=== PATIENT | female | born 1960 | race Caucasian/White ===

== ENCOUNTER 2016-10-27 15:31 | Emergency (ER) | payer OTHER ==
[~2016-10-27] VITALS: Ht 174 cm; Wt 89.4 kg
[~2016-10-27 15:31] MED LIST: ALDACTONE100 M1 PO; ASPIRIN EC81 M1 PO; B COMPLEX1 EACH PO; BIOTIN2500 MCG PO; BOTOX100 UNIT; BYDUREON2 MG SC; CALCIUM-MAG-ZI1 EACH PO; CIPRODEX OTIC7.5 ML OT; CLARITIN10 M1 PO; DEXAMETHAS0.5 MG/52 PO; FERROUS SULFAT324 MG PO; FOLIC ACID0.8 M2 PO; FUROSEMIDE20 M1 PO; HUMALOG MI100 UNIT/4 SC; LANTUS SOL100 UNIT/1 SC; MAGNESIUM250 M3 PO; MECLIZINE HCL25 MG PO; MELATONIN10 M2 PO; METFORMIN HCL500 MG PO; MILK THISTLE200 M1 PO; MULTIPLE VITAM1 EAC2 PO; PANTOPRAZOLE SO40 M1 PO; PHENERGAN25 M1 PO; PROMETHAZINE HC25 M3 PO; TIZANIDINE HCL2 M1 PO; UNISOM25 M1 PO; VICODIN 5-3001 EACH PO; VICODIN5-300 PO; VITAMIN B2100 MG PO; VITAMIN C100 M2 PO; VITAMIN D1000 UNIT PO; VITAMIN E100 I1 PO; ZINC50 M2 PO
--- NOTE | 2016-10-27 17:14 | ED HEADACHE COMPLAINT ---
History of Present Illness General Chief Complaint: Headache Stated Complaint: MIGRAINE X 1 WEEK Source: patient Exam Limitations: no limitations Vital Signs & Intake/Output Vital Signs & Intake/Output Vital Signs Date Time Temp Pulse Resp B/P Pulse O2 O2 Flow FiO2 Ox Delivery Rate 10/27 2048 77 20 121/70 99 Room Air 10/27 1904 77 22 127/60 98 Room Air 10/27 1736 Room Air 10/27 1538 98.3 80 20 135/74 99 Room Air Allergies Coded Allergies: Estrogens (CONTRAINDICATED 10/27/16) amitriptyline (From ELAVIL) (UNKNOWN 10/27/16) aspirin (From AGGRENOX) (LEG CRAMPS 10/27/16) banana (MIGRAINE HEADACHE 10/27/16) carvedilol (From COREG) (LOW BP 10/27/16) dipyridamole (From AGGRENOX) (LEG CRAMPS 10/27/16) divalproex sodium (From DEPAKOTE) (LOSING HAIR 10/27/16) ezetimibe (From VYTORIN) (MUSCLE WEAKNESS, LOW BP 10/27/16) fentanyl (UNKNOWN/CONFUSION 10/27/16) gemfibrozil (From LOPID) (MUSCLE WEAKNESS 10/27/16) hydroxychloroquine (From PLAQUENIL) (LEG CRAMPS 10/27/16) ketorolac (From TORADOL) (HEADACHE 10/27/16) methysergide (From SANSERT) (N/V 10/27/16) metoclopramide (From REGLAN) (INVOLUNTARY MOVEMENTS WITH [facility] WEAKNESS 10/14) olanzapine (From ZYPREXA) (UNKNOWN 10/27/16) onion (MIGRAINES 10/27/16) paroxetine (From PAXIL) (UNKNOWN 10/27/16) pioglitazone (From ACTOS) (UNKNOWN 10/27/16) pregabalin (From LYRICA) (LOSS OF BALANCE 10/27/16) prochlorperazine (From COMPAZINE) (NEURO 10/27/16) propoxyphene (PARANOIA 10/27/16) propranolol (LOW BP 10/27/16) ranolazine (From RANEXA) (LOW BP 10/27/16) sertraline (From ZOLOFT) (UNKNOWN 10/27/16) simvastatin (From VYTORIN) (MUSCLE WEAKNESS, LOW BP 10/27/16) temazepam (From RESTORIL) (UBJ 10/27/16) tiagabine (From GABITRIL) (UNKNOWN 10/27/16) topiramate (From TOPAMAX) (HEADACHE 10/27/16) Triage Note: TRIAGE: PT TO ER C/C MIGRAINE HEADACHE SINCE LAST MONDAY. TRIED IBUOROFEN AND EXCEDRIN MIGRAINE WITH ONLY SLIGHT RELIEF NOTED. Triage Nurses Notes Reviewed? yes HPI: This patient is a 56-year-old female with past medical history including migraine headaches and questionable prior TIA who presented to the emergency department today for evaluation of a headache since Monday. The patient reported that he had pain is located primarily on the left side of her head which is where her usual migraines are located. She reported that the pain worsened until Monday when it became constant. It is currently an 8.5 out of 10. The pain is nonradiating and throbbing. The patient denied any visual changes, or aura, neck pain, rashes, body aches, chest pain, difficulty breathing, numbness or tingling in her extremities, unilateral weakness, difficulty with speech, abdominal pain, or any other associated symptoms. The patient reported that she has tried taking ibuprofen and Excedrin Migraine without any relief of her symptoms. Her last dose of these medications with this morning. The patient typically gets Botox injections for her migraines. She reported that she has not had any migraines and, "quite some time," and that this is the first one she has had in a while. (ROD DE LA GARZA,BIANCA) Reconcile Medications Ascorbic Acid (Vitamin C) 100 MG TABLET 3 TAB PO DAILY SUPPLEMENT (Reported) Aspirin (Ecotrin*) 81 MG TABLET. 1 TAB PO DAILY HEART/BLOOD (Reported) Biotin 2,500 MCG CAPSULE 2 CAP PO BID SUPPLEMENT (Reported) Botulinum Toxin Type A (Botox) (Unknown Strength) VIAL (Unknown Dose) Q3M UNKNOWN (Reported) Butalb/Acetaminophen/Caffeine (Fioricet 50-300-40 MG Capsule) 50 MG-300 MG-40 MG CAPSULE 1 TAB PO TID PRN MIGRAINE Calcium Carb/D3/Magnesium/Zinc (Zwlbbbh-Kel-Ygfi-Vit D Tablet) 333 MG-200 UNIT- 133 MG-5 MG TABLET 1 TAB PO DAILY SUPPLEMENT (Reported) Cholecalciferol (Vitamin D3) (Vitamin D) 1,000 UNIT TABLET 1 TAB PO DAILY SUPPLEMENT (Reported) Dexamethasone (Unknown Strength) ELIXIR (Unknown Dose) PO BID RINSE (Reported ) Doxylamine Succinate (Unisom) 25 MG TABLET 2 TAB PO QPM SLEEP (Reported) Ferrous Sulfate 324 MG (65 MG IRON) TABLET.DR 1 TAB PO BID SUPPLEMENT ( Reported) Folic Acid 0.8 MG TABLET 1 TAB PO DAILY SUPPLEMENT (Reported) Furosemide 20 MG TABLET 1 TAB PO DAILY PRN WATER PILL (Reported) Insulin Glargine,Hum.rec.anlog (Lantus Solostar) 100 UNIT/ML (3 ML) INSULN.PEN 30 UNIT SC BID DM (Reported) Insulin NPL/Insulin Lispro (Humalog Mix 50-50 Kwikpen) 100 UNIT/ML (50-50) INSULN.PEN 15 U SC DAILY DIABETES (Reported) Insulin NPL/Insulin Lispro (Humalog Mix 50-50 Kwikpen) 100 UNIT/ML (50-50) INSULN.PEN 25 U SC QPM DIABETES (Reported) Insulin NPL/Insulin Lispro (Humalog Mix 50-50 Kwikpen) 100 UNIT/ML (50-50) INSULN.PEN 15 U SC 1200 DIABETES (Reported) Loratadine (Claritin) 10 MG TABLET 1 TAB PO DAILY ALLERGIES (Reported) Magnesium 250 MG TABLET 1 TAB PO DAILY SUPPLEMENT (Reported) Meclizine HCl 25 MG TABLET 1 TAB PO TIDPRN PRN DIZZINESS Melatonin 10 MG TABLET 1 TAB PO QPM SLEEP (Reported) Milk Thistle Seed Extract (Milk Thistle) 200 MG CAPSULE 1 CAP PO DAILY SUPPLEMENT (Reported) Multivitamin (Multiple Vitamins) 1 EACH TABLET 1 TAB PO DAILY SUPPLEMENT ( Reported) Pantoprazole Sodium 40 MG TABLET.DR 1 TAB PO DAILY GI (Reported) Spironolactone (Aldactone) 100 MG TABLET 1 TAB PO DAILY PRN UNKNOWN (Reported ) Tizanidine HCl 2 MG TABLET 1 TAB PO AD PRN PAIN (Reported) Vitamin B Complex (B Complex) 1 EACH TABLET 1 TAB PO DAILY SUPPLEMENT ( Reported) ZINC 50 MG TABLET 1 TAB PO DAILY SUPPLEMENT (Reported) (KRISTIN GOLDSTEIN) Past History Travel History Traveled to [place] past 21 day No Medical History Any Pertinent Medical History? see below for history Neurological: migraine EENT: cataracts Cardiovascular: NONE Respiratory: NONE Gastrointestinal: NONE Hepatic: NonAlcholic Systemic Hep. Renal: NONE Musculoskeletal: calcaneal spur Psychiatric: insomnia Endocrine: diabetes Blood Disorders: anemia Cancer(s): NONE PAPER FINAL INSPECTOR/Reproductive: NONE History of MRSA: No History of VRE: No History of CDIFF: No Surgical History Surgical History: non-contributory Psychosocial History Who do you live with Spouse Services at Home None What is your primary language Gibralt[place] Tobacco Use: Never used ETOH Use: denies use Illicit Drug Use: denies illicit drug use Family History Hx Contributory? No (BIANCA VELASCO PA-C) Review of Systems Review of Systems Constitutional: Reports: no symptoms. Eyes: Reports: no symptoms. Ears, Nose, Throat, Mouth: Reports: no symptoms. Respiratory: Reports: no symptoms. Cardiovascular: Reports: no symptoms. Gastrointestinal/Abdominal: Reports: no symptoms. Genitourinary: Reports: no symptoms. Musculoskeletal: Reports: no symptoms. Skin: Reports: no symptoms. Neurological/Psychological: Reports: see HPI. All Other Systems: Reviewed and Negative (BIANCA VELASCO PA-C) Physical Exam Physical Exam Cranial Nerves: normal hearing, normal speech, PERRL Comments: Well-developed well-nourished person in no acute distress HEENT: Normal EENT exam, head normocephalic/atraumatic PERRLA bilaterally. EOMI bilaterally with no nystagmus Neck: Supple, no lymphadenopathy. No midline tenderness. Full range of motion Back: Normal gait. Normal inspection Cardiovascular: Regular rate and rhythm with no murmurs, rubs, or gallops Respiratory: Chest nontender. No respiratory distress. Breath sounds clear to auscultation bilaterally Extremity: Normal and equal pulses Neuro: Alert oriented x3, motor sensory normal, cranial nerves II through XII grossly intact. 5 out of 5 muscular strength in all extremities. No aphasia. No facial droop. No unilateral weakness. No focal neurologic deficits appreciated Skin: No appreciable rash on exposed skin, skin is warm and dry. Psych: Mood and affect is normal Core Measures Severe Sepsis Present: No Septic Shock Present: No (BIANCA VELASCO PA-C) Progress Differential Diagnosis: carotid dissection, cav sinus thromb, cluster SEPULVEDA, encephalitis, IC mass/tumor, intracranial Hem., meningitis, migraine SEPULVEDA, musculoskeletal pain, sinusitis, subarach. Hem., tension SEPULVEDA, temporal arteritis, TMJ syndrome, viral cephalgia Plan of Care: IT Was discussed to me by Saumya VELASCO PA-C handoff which patient is receiving second dose of morphine for headaches and reevaluation WILL OCCUR 10/27/2016 8:38:19 PM-on discharge patient had significant resolution of headache Patient will follow-up as directed and discharge instructions and had no questions on discharge.Hand-Off Endorsed To: KRISTIN GOLDSTEIN Endorsed Time: 1999 Pending: other Comments: 10/27/2016 5:12:45 PM: Discussed with this patient her options for getting a CT scan of the head. Discussed with her the risks of radiation versus the benefits should there be any intracranial pathology that we could attribute her head pain to. The patient is refusing at this time. 10/27/2016 7:07:40 PM: The patient reported that her pain is down to a 4 out of 10. She would like to try a little more medication to try to get the headache to completely break. (BIANCA VELASCO PA-C) Plan of Care: IT Was discussed to me by Saumya VELASCO PA-C handoff which patient is receiving second dose of morphine for headaches and reevaluation WILL OCCUR 10/27/2016 8:38:19 PM-on discharge patient had significant resolution of headache Patient will follow-up as directed and discharge instructions and had no questions on discharge. (KRISTIN GOLDSTEIN) Departure Departure Disposition: HOME OR SELF CARE Condition: Stable Clinical Impression Primary Impression: Migraine Qualifiers: Migraine type: without aura Status migrainosus presence: without status migrainosus Intractability: not intractable Qualified Code: G43.009 - Migraine without aura, not intractable, without status migrainosus Referrals: BHAVIK PARADA (PCP/Family) Departure Forms: Customer Survey General Discharge Information (BIANCA VELASCO PA-C) Departure Additional Instructions: Please follow-up with your primary care physician and with your neurologist if symptoms continue tomorrow. Rest and be sure to stay hydrated. Return for any worsening symptoms or concerns. Continue home medications as directed. Begin the pressure was noted Fioricet for breakthrough headache relief. Prescription is waiting at your pharmacy Prescriptions: Current Visit Scripts Butalb/Acetaminophen/Caffeine (Fioricet 50-300-40 MG Capsule) 1 TAB PO TID PRN MIGRAINE #20 TAB (KRISTIN GOLDSTEIN) PA/RN OSTOMY Co-Sign Statement Statement: ED Attending supervision documentation- [] I saw and evaluated the patient. I have also reviewed all the pertinent lab results and diagnostic results. I agree with the findings and the plan of care as documented in the PA's/RN OSTOMY's documentation. x I have reviewed the ED Record and agree with the PA's/RN OSTOMY's documentation. [] Additions or exceptions (if any) to the PAs/RN OSTOMY's note and plan are summarized below: [] (JASON CUNNINGHAM,QUINN)
[2016-10-27] MEDS ORDERED: FIORICET 50-301 EACH PO (20:37)
[2016-10-27 20:48] VITALS: BP 121/70
== END 2016-10-27 20:49 ==
LOC: ERH 15:31
DX: G43.909 Migraine, unspecified, not intractable, without status migrainosus (principal)
CPT/HCPCS: 96361; 96374; 96375; 96376; J1200

== ENCOUNTER 2016-12-09 19:36 | Emergency (ER) | payer OTHER ==
[~2016-12-09] VITALS: Ht 172.7 cm; Wt 88.9 kg
[~2016-12-09 19:36] MED LIST changes: +FIORICET 50-301 EACH PO
--- NOTE | 2016-12-09 21:03 | ED UPPER/LOWER EXTREMITY COMPL ---
History of Present Illness General Chief Complaint: Hand or Wrist Injury Stated Complaint: LEFT HAND PAIN Source: patient Exam Limitations: no limitations Vital Signs & Intake/Output Vital Signs & Intake/Output Vital Signs Date Time Temp Pulse Resp B/P Pulse O2 O2 Flow FiO2 Ox Delivery Rate 12/09 2200 98.1 90 18 138/74 96 12/09 2005 98.6 93 18 143/78 98 Room Air ED Intake and Output 12/10 0000 12/09 1200 Intake Total 30 Output Total Balance 30 Intake, Oral 30 Patient 196 lb Weight Allergies Coded Allergies: Estrogens (CONTRAINDICATED 10/27/16) amitriptyline (From ELAVIL) (UNKNOWN 10/27/16) aspirin (From AGGRENOX) (LEG CRAMPS 10/27/16) banana (MIGRAINE HEADACHE 10/27/16) carvedilol (From COREG) (LOW BP 10/27/16) dipyridamole (From AGGRENOX) (LEG CRAMPS 10/27/16) divalproex sodium (From DEPAKOTE) (LOSING HAIR 10/27/16) ezetimibe (From VYTORIN) (MUSCLE WEAKNESS, LOW BP 10/27/16) fentanyl (UNKNOWN/CONFUSION 10/27/16) gemfibrozil (From LOPID) (MUSCLE WEAKNESS 10/27/16) hydroxychloroquine (From PLAQUENIL) (LEG CRAMPS 10/27/16) ketorolac (From TORADOL) (HEADACHE 10/27/16) methysergide (From SANSERT) (N/V 10/27/16) metoclopramide (From REGLAN) (INVOLUNTARY MOVEMENTS WITH [facility] WEAKNESS 10/14) olanzapine (From ZYPREXA) (UNKNOWN 10/27/16) onion (MIGRAINES 10/27/16) paroxetine (From PAXIL) (UNKNOWN 10/27/16) pioglitazone (From ACTOS) (UNKNOWN 10/27/16) pregabalin (From LYRICA) (LOSS OF BALANCE 10/27/16) prochlorperazine (From COMPAZINE) (NEURO 10/27/16) propoxyphene (PARANOIA 10/27/16) propranolol (LOW BP 10/27/16) ranolazine (From RANEXA) (LOW BP 10/27/16) sertraline (From ZOLOFT) (UNKNOWN 10/27/16) simvastatin (From VYTORIN) (MUSCLE WEAKNESS, LOW BP 10/27/16) temazepam (From RESTORIL) (UBJ 10/27/16) tiagabine (From GABITRIL) (UNKNOWN 10/27/16) topiramate (From TOPAMAX) (HEADACHE 10/27/16) Reconcile Medications Ascorbic Acid (Vitamin C) 100 MG TABLET 3 TAB PO DAILY SUPPLEMENT (Reported) Aspirin (Ecotrin*) 81 MG TABLET.DR 1 TAB PO DAILY HEART/BLOOD (Reported) Biotin 2,500 MCG CAPSULE 2 CAP PO BID SUPPLEMENT (Reported) Botulinum Toxin Type A (Botox) (Unknown Strength) VIAL (Unknown Dose) Q3M UNKNOWN (Reported) Butalb/Acetaminophen/Caffeine (Fioricet 50-300-40 MG Capsule) 50 MG-300 MG-40 MG CAPSULE 1 TAB PO TID PRN MIGRAINE Calcium Carb/D3/Magnesium/Zinc (Thghtra-Ggx-Jote-Vit D Tablet) 333 MG-200 UNIT- 133 MG-5 MG TABLET 1 TAB PO DAILY SUPPLEMENT (Reported) Cholecalciferol (Vitamin D3) (Vitamin D) 1,000 UNIT TABLET 1 TAB PO DAILY SUPPLEMENT (Reported) Dexamethasone (Unknown Strength) ELIXIR (Unknown Dose) PO BID RINSE (Reported ) Doxylamine Succinate (Unisom) 25 MG TABLET 2 TAB PO QPM SLEEP (Reported) Ferrous Sulfate 324 MG (65 MG IRON) TABLET.DR 1 TAB PO BID SUPPLEMENT ( Reported) Folic Acid 0.8 MG TABLET 1 TAB PO DAILY SUPPLEMENT (Reported) Furosemide 20 MG TABLET 1 TAB PO DAILY PRN WATER PILL (Reported) Insulin Glargine,Hum.rec.anlog (Lantus Solostar) 100 UNIT/ML (3 ML) INSULN.PEN 30 UNIT SC BID DM (Reported) Insulin NPL/Insulin Lispro (Humalog Mix 50-50 Kwikpen) 100 UNIT/ML (50-50) INSULN.PEN 15 U SC DAILY DIABETES (Reported) Insulin NPL/Insulin Lispro (Humalog Mix 50-50 Kwikpen) 100 UNIT/ML (50-50) INSULN.PEN 25 U SC QPM DIABETES (Reported) Insulin NPL/Insulin Lispro (Humalog Mix 50-50 Kwikpen) 100 UNIT/ML (50-50) INSULN.PEN 15 U SC 1200 DIABETES (Reported) Loratadine (Claritin) 10 MG TABLET 1 TAB PO DAILY ALLERGIES (Reported) Magnesium 250 MG TABLET 1 TAB PO DAILY SUPPLEMENT (Reported) Meclizine HCl 25 MG TABLET 1 TAB PO TIDPRN PRN DIZZINESS Melatonin 10 MG TABLET 1 TAB PO QPM SLEEP (Reported) Milk Thistle Seed Extract (Milk Thistle) 200 MG CAPSULE 1 CAP PO DAILY SUPPLEMENT (Reported) Multivitamin (Multiple Vitamins) 1 EACH TABLET 1 TAB PO DAILY SUPPLEMENT ( Reported) Oxycodone HCl/Acetaminophen (Percocet 5-325 MG Tablet) 5 MG-325 MG TABLET 1 TAB PO BID PAIN Pantoprazole Sodium 40 MG TABLET.DR 1 TAB PO DAILY GI (Reported) Spironolactone (Aldactone) 100 MG TABLET 1 TAB PO DAILY PRN UNKNOWN (Reported ) Tizanidine HCl 2 MG TABLET 1 TAB PO AD PRN PAIN (Reported) Vitamin B Complex (B Complex) 1 EACH TABLET 1 TAB PO DAILY SUPPLEMENT ( Reported) ZINC 50 MG TABLET 1 TAB PO DAILY SUPPLEMENT (Reported) Triage Note: RECEIVED 56 YO FEMALE C/O SEVERE LEFT HAND PAIN AND LOSS OF FULL ROM ON LEFT HAND FINGERS. PT WAS PICKING UP A LARGE ROCK THIS AFTERNOON WHEN PT GOT A SEVERE PAIN IN PALM OF LEFT HAND AND PAIN RADIATES UP LEFT ARM WHEN SHE TRIES TO USE THE FINGERS Triage Nurses Notes Reviewed? yes Onset: Abrupt Duration: constant Timing: single episode today Severity: severe Severity Numbers: 10 HPI: Patient is a 56-year-old female who presents emergency room sooner today while gardening she was holding a heavy rock in her hand with a rock was was held and she tried to grab it immediately however she had acute onset of (KRISTIN GOLDSTEIN) Past History Travel History Traveled to [place] past 21 day No Medical History Any Pertinent Medical History? see below for history Neurological: migraine EENT: cataracts Cardiovascular: NONE Respiratory: NONE Gastrointestinal: NONE Hepatic: NonAlcholic Systemic Hep. Renal: NONE Musculoskeletal: calcaneal spur Psychiatric: insomnia Endocrine: diabetes Blood Disorders: anemia Cancer(s): NONE RISK ADVISOR/Reproductive: NONE History of MRSA: No History of VRE: No History of CDIFF: No Surgical History Surgical History: non-contributory Psychosocial History Who do you live with Spouse Services at Home None What is your primary language [place] Tobacco Use: Never used Family History Hx Contributory? No (KRISTIN GOLDSTEIN) Review of Systems Review of Systems Constitutional: Reports: no symptoms. EENTM: Reports: no symptoms. Respiratory: Reports: no symptoms. Cardiovascular: Reports: no symptoms. Gastrointestinal/Abdominal: Reports: no symptoms. Genitourinary: Reports: no symptoms. Musculoskeletal: Reports: see HPI, joint pain. Skin: Reports: no symptoms. Neurological/Psychological: Reports: no symptoms. Hematologic/Endocrine: Reports: no symptoms. Immunological: Reports: no symptoms. All Other Systems: Reviewed and Negative (KRISTIN GOLDSTEIN) Physical Exam Physical Exam General Appearance: no apparent distress, comfortable Neurologic/Tendon: normal sensation, normal motor functions, normal tendon functions, responds to pain, no evidence tendon injury, no pulse deficit Skin: intact, normal color, warm/dry Comments: Well-developed well-nourished patient in no apparent distress. HEENT: Atraumatic, extraocular motion intact Neck: Supple, FROM, no lymphadenopathy Back: FROM, Nontender Cardiovascular: Regular rate and rhythms no murmurs rubs or gallops, Respiratory: Chest nontender.There were no bony deformities, no asymmetry. No respiratory distress. Patient speaking in full complete sentences. Breath sounds clear to auscultation bilaterally: NO W/R/R Neuro: Alert and oriented x3 Skin: Warm & dry;No appreciable rash on exposed skin Left wrist nontender full active range of motion Psych: Mood affect normal, normal memory normal judgment. Diagram Hands Front 1) Noted linear tendon POINT TENDERNESS Full active range of motion noted with flexion and extension no surrounding erythema no warmth dermatomes intact (KRISTIN GOLDSTEIN) Progress Differential Diagnosis: arterial insufficiency, compartment syndrome, contusion, dislocation, DVT, fracture, gout, septic arthritis, sprain, tendon injury, DUPUTRYEN'S CONTRACTURE Plan of Care: Orders Procedure Date/time Status XRY-HAND, 3 View LEFT 12/09 2010 Active No osseous injury noted on x-rays. Patient has concerns of right hand third digit flexor tendon sprain mild suspicion of DUPUYTREN'S contracture however patient was strongly advised to follow up with orthopedic doctor if symptoms still persist by next week. No significant contracture noted prior to discharge however patient did have discomfort along the flexor tendon region. (KRISTIN GOLDSTEIN) Diagnostic Imaging: Viewed by Me: Radiology Read. Radiology Impression: no acute abnormality Comments: PATIENT: MELLISA MCLEAN PRESENT AGE: 56 PATIENT ACCOUNT NO: [id number] : 56 LOCATION: [facility] ORDERING PHYSICIAN: KRISTIN FELIX SERVICE DATE: 12/09/16 EXAM TYPE: RAD - XRY-HAND, LEFT EXAMINATION: XR HAND, LEFT CLINICAL INFORMATION: Left hand pain following injury. COMPARISON: None. TECHNIQUE: AP, lateral, and oblique views of the left hand. FINDINGS: No acute fracture or dislocation of the left hand. No cortical destruction or significant periosteal reaction is identified. There are cortical lucencies along the radial aspect of the proximal and mid phalanges of the fourth digit. This can be seen in the setting of underlying arthritis. There is also minimal associated joint space narrowing involving the proximal and distal interphalangeal joints of all 5 digits. No radiopaque foreign bodies. IMPRESSION: No acute fracture or dislocation of the left hand. (KRISTIN GOLDSTEIN) Departure Departure Disposition: HOME OR SELF CARE Condition: Stable Clinical Impression Primary Impression: Sprain of left middle finger Secondary Impressions: Dupuytren contracture Referrals: BHAVIK PARADA (PCP/Family) MEREDITH MAS MD Additional Instructions: As discussed begin to ice the area directly 20 minutes every 2 hours. Begin [id number]-fodbnuk ibuprofen for pain and inflammation begin the prescription of Percocet for breakthrough pain relief. If no better one week follow-up with orthopedic Dr. Mas. Prescriptions waiting a [facility]. If symptoms worsen return to emergency room Departure Forms: Customer Survey General Discharge Information Prescriptions: Current Visit Scripts Oxycodone HCl/Acetaminophen (Percocet 5-325 MG Tablet) 1 TAB PO BID #10 TAB (KRISTIN GOLDSTEIN) PA/SAP PLANT MAINTENANCE CONSULTANT Co-Sign Statement Statement: ED Attending supervision documentation- [] I saw and evaluated the patient. I have also reviewed all the pertinent lab results and diagnostic results. I agree with the findings and the plan of care as documented in the PA's/[employer] PL[employer] MAINTENANCE CONSULTANT's documentation. [x] I have reviewed the ED Record and agree with the PA's/SAP PLANT MAINTENANCE CONSULTANT's documentation. [] Additions or exceptions (if any) to the PAs/SAP PLANT MAINTENANCE CONSULTANT's note and plan are summarized below: [] (ELO CUNNINGHAM,PAZ Bautista)
--- NOTE | 2016-12-09 21:29 | RADIOLOGY REPORT ---
EXAMINATION: XR HAND, LEFT CLINICAL INFORMATION: Left hand pain following injury. COMPARISON: None. TECHNIQUE: AP, lateral, and oblique views of the left hand. FINDINGS: No acute fracture or dislocation of the left hand. No cortical destruction or significant periosteal reaction is identified. There are cortical lucencies along the radial aspect of the proximal and mid phalanges of the fourth digit. This can be seen in the setting of underlying arthritis. There is also minimal associated joint space narrowing involving the proximal and distal interphalangeal joints of all 5 digits. No radiopaque foreign bodies. IMPRESSION: No acute fracture or dislocation of the left hand.
[2016-12-09] MEDS ORDERED: PERCOCET 5-3251 EACH PO (21:41)
[2016-12-09 22:01] VITALS: BP 138/74
== END 2016-12-09 22:02 ==
LOC: ERH 19:36
DX: S63.633A Sprain of interphalangeal joint of left middle finger, initial encounter (principal); M72.0 Palmar fascial fibromatosis [Dupuytren]; X58.XXXA Exposure to other specified factors, initial encounter; Y93.H2 Activity, gardening and landscaping; Y92.9 Unspecified place or not applicable
CPT/HCPCS: 73130-LT

== ENCOUNTER 2018-01-02 12:14 | Inpatient (IN) | payer OTHER ==
[~2018-01-02] VITALS: Ht 174 cm; Wt 87.1 kg
[~2018-01-02 12:14] MED LIST changes: +PERCOCET 5-3251 EACH PO
[2018-01-02 12:44] LABS: ABSOLUTE BASOPHIL COUNT 0 /CUMM (0.0-0.2); ABSOLUTE EOSINOPHIL COUNT 0 /CUMM (0.0-0.7); ABSOLUTE GRANULOCYTE CT 6.3 /CUMM (1.4-6.5); ABSOLUTE LYMPH COUNT 0.8 /CUMM (1.2-3.4); ABSOLUTE MONOCYTE COUNT 0.7 /CUMM (0.10-0.60); BASOPHIL % 0.2 % (0.0-2.0); EOSINOPHIL % 0.4 % (0-5); GRANULOCYTE % 81.1 % (42.2-75.2); MEAN CORPUSCULAR HGB 34.2 PG (27.0-31.0); MEAN CORPUSCULAR HGB CONC 35.5 G/DL (33.0-37.0); MEAN CORPUSCULAR VOLUME 96.4 FL (81.0-99.0); MEAN PLATELET VOLUME 7.1 FL (7.4-10.4); PLATELET COUNT 70 /CUMM (130-400); RBC DISTRIBUTION WIDTH 14.6 % (11.5-14.5); RED BLOOD CELL CT 4.35 /CUMM (4.20-5.40); WHITE BLOOD CELL COUNT 7.8 /CUMM (4.8-10.8)
--- NOTE | 2018-01-02 14:33 | ED GI/GU/ABDOMINAL COMPLAINT ---
History of Present Illness General Chief Complaint: Nausea, Vomiting, Diarrhea Stated Complaint: NVD Source: patient, family Exam Limitations: no limitations Vital Signs & Intake/Output Vital Signs & Intake/Output Vital Signs Date Time Temp Pulse Resp B/P B/P Pulse O2 O2 Flow FiO2 Mean Ox Delivery Rate 01/02 1752 98.8 93 20 131/61 97 Room Air Room Air 01/02 1711 98.5 88 18 122/68 97 Room Air Room Air 01/02 1435 90 18 117/65 96 Room Air 01/02 1218 98.2 97 18 127/71 96 Allergies Coded Allergies: Estrogens (CONTRAINDICATED 10/27/16) amitriptyline (From ELAVIL) (UNKNOWN 10/27/16) aspirin (From AGGRENOX) (LEG CRAMPS 10/27/16) banana (MIGRAINE HEADACHE 10/27/16) carvedilol (From COREG) (LOW BP 10/27/16) dipyridamole (From AGGRENOX) (LEG CRAMPS 10/27/16) divalproex sodium (From DEPAKOTE) (LOSING HAIR 10/27/16) ezetimibe (From VYTORIN) (MUSCLE WEAKNESS, LOW BP 10/27/16) fentanyl (UNKNOWN/CONFUSION 10/27/16) gemfibrozil (From LOPID) (MUSCLE WEAKNESS 10/27/16) hydroxychloroquine (From PLAQUENIL) (LEG CRAMPS 10/27/16) ketorolac (From TORADOL) (HEADACHE 10/27/16) methysergide (From SANSERT) (N/V 10/27/16) metoclopramide (From REGLAN) (INVOLUNTARY MOVEMENTS WITH LINE MAINTENANCE WEAKNESS 10/14) olanzapine (From ZYPREXA) (UNKNOWN 10/27/16) onion (MIGRAINES 10/27/16) paroxetine (From PAXIL) (UNKNOWN 10/27/16) pioglitazone (From ACTOS) (UNKNOWN 10/27/16) pregabalin (From LYRICA) (LOSS OF BALANCE 10/27/16) prochlorperazine (From COMPAZINE) (NEURO 10/27/16) propoxyphene (PARANOIA 10/27/16) propranolol (LOW BP 10/27/16) ranolazine (From RANEXA) (LOW BP 10/27/16) sertraline (From ZOLOFT) (UNKNOWN 10/27/16) simvastatin (From VYTORIN) (MUSCLE WEAKNESS, LOW BP 10/27/16) temazepam (From RESTORIL) (UBJ 10/27/16) tiagabine (From GABITRIL) (UNKNOWN 10/27/16) topiramate (From TOPAMAX) (HEADACHE 10/27/16) Reconcile Medications Ascorbic Acid (Vitamin C) 100 MG TABLET 3 TAB PO DAILY SUPPLEMENT (Reported) Biotin 2,500 MCG CAPSULE 2 CAP PO BID SUPPLEMENT (Reported) Botulinum Toxin Type A (Botox) (Unknown Strength) VIAL (Unknown Dose) Q3M UNKNOWN (Reported) Butalb/Acetaminophen/Caffeine (Fioricet 50-300-40 MG Capsule) 50 MG-300 MG-40 MG CAPSULE 1 TAB PO TID PRN MIGRAINE Calcium Carb/D3/Magnesium/Zinc (Tgenskz-Dte-Wjxe-Vit D Tablet) 333 MG-200 UNIT- 133 MG-5 MG TABLET 1 TAB PO DAILY SUPPLEMENT (Reported) Cholecalciferol (Vitamin D3) (Vitamin D) 1,000 UNIT TABLET 1 TAB PO DAILY SUPPLEMENT (Reported) Dexamethasone (Unknown Strength) ELIXIR (Unknown Dose) PO BID RINSE (Reported ) Doxylamine Succinate (Unisom) 25 MG TABLET 2 TAB PO QPM SLEEP (Reported) Ferrous Sulfate 324 MG (65 MG IRON) TABLET.DR 1 TAB PO BID SUPPLEMENT ( Reported) Folic Acid 0.8 MG TABLET 1 TAB PO DAILY SUPPLEMENT (Reported) Insulin Glargine,Hum.rec.anlog (Lantus Solostar) 100 UNIT/ML (3 ML) INSULN.PEN 30 UNIT SC BID DM (Reported) Insulin NPL/Insulin Lispro (Humalog Mix 50-50 Kwikpen) 100 UNIT/ML (50-50) INSULN.PEN 15 U SC DAILY DIABETES (Reported) Insulin NPL/Insulin Lispro (Humalog Mix 50-50 Kwikpen) 100 UNIT/ML (50-50) INSULN.PEN 25 U SC QPM DIABETES (Reported) Insulin NPL/Insulin Lispro (Humalog Mix 50-50 Kwikpen) 100 UNIT/ML (50-50) INSULN.PEN 15 U SC 1200 DIABETES (Reported) Loratadine (Claritin) 10 MG TABLET 1 TAB PO DAILY ALLERGIES (Reported) Magnesium 250 MG TABLET 1 TAB PO DAILY SUPPLEMENT (Reported) Melatonin 10 MG TABLET 1 TAB PO QPM SLEEP (Reported) Milk Thistle Seed Extract (Milk Thistle) 200 MG CAPSULE 1 CAP PO DAILY SUPPLEMENT (Reported) Multivitamin (Multiple Vitamins) 1 EACH TABLET 1 TAB PO DAILY SUPPLEMENT ( Reported) Pantoprazole Sodium 40 MG TABLET.DR 1 TAB PO DAILY GI (Reported) Spironolactone (Aldactone) 100 MG TABLET 1 TAB PO DAILY PRN UNKNOWN (Reported ) Trazodone HCl 50 MG TABLET 1 TAB PO QPM SLEEP (Reported) Vitamin B Complex (B Complex) 1 EACH TABLET 1 TAB PO DAILY SUPPLEMENT ( Reported) ZINC 50 MG TABLET 1 TAB PO DAILY SUPPLEMENT (Reported) Triage Note: PER PT DIARRHEA SINCE MONDAY VOMITING SINCE YESTERDAY NO FEVERS APPEARS WELL HYDRATED Triage Nurses Notes Reviewed? yes ? Y Is pt currently ? No HPI: 57 yo F PMH DM, VILLEDA, Migraines presenting with N/V/D, abdoinal pain. Diarrhea for the last 4-5 days, loose, watery, light brown, 10+ episodes per day, first noted to be bloody here in the emergency department. Stated nausea for the last 3 days with 3-4 episodes of emesis per day, minimal by mouth intake of food, still able drink some fluids. Associated intermittent epigastric and upper abdominal pain, more sustained and worse since this morning. Tactile fevers and chills. ROS (+) for headache since this morning. Denies rash, chest pain, SOB, palpitaitons, LE swelling or pain, urinary Sx. (Skip CUNNINGHAM,Marlon) Past History Travel History Traveled to [place] past 21 day No Medical History Any Pertinent Medical History? see below for history Neurological: migraine EENT: cataracts Cardiovascular: NONE Respiratory: NONE Gastrointestinal: NONE Hepatic: NonAlcholic Systemic Hep. 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 Yes (Skip CUNNINGHAM,Marlon) Review of Systems Review of Systems Constitutional: Reports: see HPI. EENTM: Reports: no symptoms. Respiratory: Reports: no symptoms. Cardiovascular: Reports: no symptoms. GI: Reports: see HPI. Genitourinary: Reports: no symptoms. Musculoskeletal: Reports: no symptoms. Skin: Reports: no symptoms. Neurological/Psychological: Reports: no symptoms. Hematologic/Endocrine: Reports: no symptoms. Immunologic/Allergic: Reports: no symptoms. All Other Systems: Reviewed and Negative (Skip CUNNINGHAM,Marlon) Physical Exam Physical Exam General Appearance: alert, awake Head: atraumatic Ears, Nose, Throat, Mouth: moist mucous membrane Neck: normal inspection, full range of motion, no midline tenderness Respiratory: no respiratory distress, lungs clear Cardiovascular: regular rate/rhythm Gastrointestinal: soft, tenderness Comments: Abdomen: Moderate epigastric TTP without rebound or guarding Rectal: Watery brown-red guaiac (+) stool Core Measures ACS in differential dx? No Sepsis Present: No Sepsis Focused Exam Completed? No (Marlon Valdivia MD) Progress Differential Diagnosis: AAA, AMI, appendicitis, biliary colic, bowel obstruction , colon cancer, cholecystitis, diverticulitis, ectopic , endometritis, esophageal varices, gastritis, hepatitis, hernia, hemorrhoids, ischemic bowel, inflamm bowel dis, intrauterine , kidney stone, Sosa-Aroldo tear, ovarian cyst, ovarian torsion, pancreatitis, PID/cervicitis, peptic ulcer, PUD/ GERD, perforated viscous, SBO, threatened AB, UTI/pyelo Plan of Care: Orders Procedure Date/time Status Misc Message 01/02 1929 Active ED Holding Orders 01/02 1929 Active Code Status 01/02 1929 Active Patient Data 01/02 1753 Active FingerStick- Glucose 01/02 1710 Active Admit to inpatient 01/02 1629 Active CULTURE,STOOL 01/02 1539 Active C.DIFFICILE 01/02 1539 Active Add-on Test (ER Only) 01/02 1433 Active Intake & Output 01/02 1426 Active PROTHROMBIN TIME 01/02 1226 Complete MAGNESIUM 01/02 1220 Complete LIPASE 01/02 1220 Complete COMPREHENSIVE METABOLIC PANEL 01/02 1220 Complete CBC WITHOUT DIFFERENTIAL 01/02 1220 Complete AMYLASE 01/02 1220 Complete Laboratory Tests 01/02/18 1226: Anion Gap 12, Estimated GFR > 60, BUN/Creatinine Ratio 34.3 H, Glucose 177 H, Calcium 8.5, Magnesium 1.5 L, Total Bilirubin 4.3 H, AST 35, ALT 33, Alkaline Phosphatase 63, Total Protein 5.8 L, Albumin 3.2 L, Globulin 2.6, Albumin/ Globulin Ratio 1.2, Amylase 49, Lipase 71, PT 17.5 H, INR 1.60 H, CBC w Diff NO MAN DIFF REQ, RBC 4.35, MCV 96.4, MCH 34.2 H, MCHC 35.5, RDW 14.6 H, MPV 7.1 L, Gran % 81.1 H, Lymphocytes % 9.9 L, Monocytes % 8.4, Eosinophils % 0.4 , Basophils % 0.2, Absolute Granulocytes 6.3, Absolute Lymphocytes 0.8 L, Absolute Monocytes 0.7 H, Absolute Eosinophils 0, Absolute Basophils 0 Microbiology 01/03 1600 STOOL: Clostridium difficile Toxin A & B - RECD 01/03 1600 STOOL: Stool Culture - RECD Physician MDM: 57 yo F PMH DM, VILLEDA, Migraines presenting with N/V/D, abdoinal pain. VSS, exam as above. DDx: Viral gasrtoenteritis, Bacterial gastroenteritis (salmonella, shigella), C. Diff, UC/Crohns, less likely toxic megacolon or surgical abdominal pathology. 2L NS, morhpine, zofran given with improvement in Sx. Labs remarkable for thrombocytopenia, hypomagnesemia (repleted), elevated bilirubin to 4.3 (last value normal), INR elevated around baseline at 1.6. C. Diff and stool culture sent. CT abdomen and pelvis with syed colitis, ciprofloxacin and flagyl ordered. Admit given patient unable to tolerate PO with evidence of liver dysfunction, GIB. Initial ED EKG: none (Skip CUNNINGHAM,Marlon) Departure Departure Disposition: STILL A PATIENT Condition: Stable Clinical Impression Primary Impression: GIB (gastrointestinal bleeding) Secondary Impressions: Abdominal pain, Diarrhea, Nausea and vomiting, Pancolitis Referrals: Asim Oliver MD (PCP/Family) Departure Forms: Customer Survey General Discharge Information Admission Note Spoke With: Chapo Marin MD Documentation of Exam: Documentation of any treatments & extenuating circumstances including Concerns Regarding Discharge (functional status, medication knowledge or non-compliance, living conditions, etc.) that warrant an admission rather than observation: [ Patient presents with several days of diarrhea, nausea, vomiting, unable tolerate by mouth, now with bloody stools, in the emergency department patient is thrombocytopenic with with evidence of worsening liver failure, CT showed pancolitis, the patient requires admission to the hospital for IV fluids, IV antibiotics, monitoring, further evaluation by gastroenterology, if discharge patient would be unlikely to tolerate her medications by mouth, with progressive infection, worsening dehydration and metabolic derrangements, possibly leating to cardiovascular collapse and .] (Skip CUNNINGHAM,Marlon) Departure Comments I agree with the physician's documentation above (Juan Antonio Rubio DO)
[2018-01-02] MEDS ORDERED: TRAZODONE HCL50 M1 PO (14:34)
[2018-01-02 14:46] LABS: PT 17.5 SEC (9.4-12.5)
--- NOTE | 2018-01-02 16:06 | ULTRASOUND REPORT ---
EXAMINATION: US ABDOMEN LIMITED CLINICAL INFORMATION: Hyperbilirubinemia, nausea and vomiting. COMPARISON: Abdominal ultrasound and CT abdomen and pelvis dated 11/11/2013. TECHNIQUE: Real-time imaging of the right upper quadrant abdominal viscera. FINDINGS: PANCREAS: Normal. The visualized pancreatic head and body are normal in appearance. The remainder of the pancreas is obscured from visualization by the overlying bowel gas. LIVER: The liver demonstrates normal size, contour and increased echogenicity. No focal lesion or intrahepatic biliary duct dilatation. GALLBLADDER: Surgically absent. COMMON BILE DUCT: Normal in caliber measuring 0.7 cm in diameter. RIGHT KIDNEY: Normal. No hydronephrosis. No renal calculi or focal parenchymal lesions. The kidney measures 11.6 cm in maximum dimension. FREE FLUID: None. IMPRESSION: 1. There is generalized increase in hepatic echotexture, consistent with fatty infiltration or hepatocellular disease. Please correlate clinically. No focal hepatic mass or intrahepatic biliary dilatation is seen. 2. The gallbladder is surgically absent. 3. Limited ultrasound examination of the pancreatic tail.
--- NOTE | 2018-01-02 17:43 | CT SCAN REPORT ---
EXAMINATION: CT ABDOMEN AND PELVIS WITH CONTRAST CLINICAL INFORMATION: Epigastric pain and bloody diarrhea. Evaluate for colitis. Toxic megacolon. COMPARISON: Abdomen ultrasound from 12/09/2016. CT imaging of the abdomen pelvis from 11/11/2013. TECHNIQUE: Multidetector volumetric imaging was performed of the abdomen and pelvis following IV administration of 95 mL of Optiray 320 intravenous contrast. Sagittal and coronal reformatted images were obtained on the technologist's workstation. DLP: 689 mGy-cm FINDINGS: LUNG BASES: The visualized lung bases are unremarkable. LIVER, GALLBLADDER, AND BILIARY TREE: Liver has nodular contour from cirrhosis. On these portal venous phase images, the liver parenchyma is relatively hypodense compared to the spleen; this suggests presence of mild steatosis and/or fibrosis of the cirrhotic liver. No evidence of hepatic mass or intrahepatic bile duct dilatation. Gallbladder is surgically absent. PANCREAS: Unremarkable. SPLEEN: The chronically enlarged spleen measures up to 16.1 cm in maximum dimension. No focal splenic lesion. Splenic vein is dilated, consistent with portal venous hypertension, and there is no evidence of splenic vein thrombosis. ADRENAL GLANDS: Unremarkable. KIDNEYS AND URETERS: Kidneys are normal in size and enhance symmetrically. No nephrolithiasis, hydronephrosis or perinephric edema. BLADDER: Unremarkable. GASTROINTESTINAL TRACT: The stomach is unremarkable. Loops of bowel are normal in caliber. There is diffuse, circumferential wall thickening of the right and left colon extending to level the rectum, consistent with pancolitis. Mild diverticulosis of the descending and sigmoid colon. No pneumatosis intestinalis, pneumoperitoneum or abscess. A small amount of free fluid is present within the pelvic cul-de-sac. ABDOMINAL WALL: Unremarkable. LYMPH NODES: The enlarged lymph nodes in the periportal region measure up to 1.3 cm short axis dimension. There is subtle haziness of the fat in the periportal/peripancreatic area, likely related to the hepatic disease. A mildly enlarged retroperitoneal lymph node at the level of the celiac trunk is 1 cm short axis dimension. No iliac or inguinal lymphadenopathy. VASCULAR: Mild atherosclerosis of the abdominal aorta without aneurysm. The portal, superior mesenteric and splenic veins are prominent, consistent with portal venous hypertension, and there is a recannulized umbilical vein. PELVIC VISCERA: Status post hysterectomy. Small amount of free fluid is present within the pelvis. OSSEOUS STRUCTURES: Degenerative disc disease of L4-L5 and L5-S1 as manifest by loss of disc height, vacuum disc phenomenon and osteophytosis. Mild osteoarthrosis of sacroiliac joints. No aggressive osseous lesions. IMPRESSION: 1. Cirrhosis, portal venous hypertension and splenomegaly. 2. Mild lymphadenopathy in the periportal region is likely reactive to the hepatic disease. 3. Pancolitis; however, no evidence of toxic megacolon. 4. Small amount of free fluid is present within the pelvis.
--- NOTE | 2018-01-02 17:52 | History & Physical ---
Noe CUNNINGHAM,[facility] 01/02/18 9944: General Information and [facility] MD Statement: I have seen and personally examined MELLISA MCLEAN and documented this H&P. The patient is a 57 year old F who presented with a patient stated chief complaint of [nausea, vomiting, diarrhea]. Source of Information: patient Exam Limitations: no limitations History of Present Illness: 57-year-old female with past medical history of diabetes, GORMAN,antiphospholipid antibody syndrome, remote history of DVT, migraine, hemorrhoids, came to [facility] complains of nausea, vomiting, diarrhea for the past 3 days. Patient was in his usual state of health until 3 days ago following which patient developed multiple episodes of diarrhea with no blood. Yesterday patient had 5- 6 episodes of vomiting with no blood. When she came to [place] [facility] she had bloody bowel movement twice with no foul-smelling. Patient felt very weak and had abdominal pain 7 x 10 during the same time. Patient has a 10 x 10 headache while interviewing. Patient denies fever, chills, chest pain, shortness of breath. Patient has a history of antiphospholipid antibody syndrome and was on Coumadin 10 years ago. She was eventually switched to Plavix and that was stopped 5 years ago. She follows with a sr. unix system administrator at [place]. Patient has history of migraine and used Fioricet in the past. Patient also has a history of right upper arm DVT more than 20 years ago. Patient had 3 miscarriages in the past. She has 2 children and lives with her . Patient endorses multiple episodes of mouth ulcers and she was given dexamethasone mouth rinse for the same. Patient developed on the left side of the lower lip a small spot for which she underwent biopsy by her oral surgeon at [place] which came out to be precancerous and decided for removal in February. Allergies/Medications Allergies: Coded Allergies: Estrogens (CONTRAINDICATED 10/27/16) amitriptyline (From ELAVIL) (UNKNOWN 10/27/16) aspirin (From AGGRENOX) (LEG CRAMPS 10/27/16) banana (MIGRAINE HEADACHE 10/27/16) carvedilol (From COREG) (LOW BP 10/27/16) dipyridamole (From AGGRENOX) (LEG CRAMPS 10/27/16) divalproex sodium (From DEPAKOTE) (LOSING HAIR 10/27/16) ezetimibe (From VYTORIN) (MUSCLE WEAKNESS, LOW BP 10/27/16) fentanyl (UNKNOWN/CONFUSION 10/27/16) gemfibrozil (From LOPID) (MUSCLE WEAKNESS 10/27/16) hydroxychloroquine (From PLAQUENIL) (LEG CRAMPS 10/27/16) ketorolac (From TORADOL) (HEADACHE 10/27/16) methysergide (From SANSERT) (N/V 10/27/16) metoclopramide (From REGLAN) (INVOLUNTARY MOVEMENTS WITH SLIVER CHOPPER WEAKNESS 10/14) olanzapine (From ZYPREXA) (UNKNOWN 10/27/16) onion (MIGRAINES 10/27/16) paroxetine (From PAXIL) (UNKNOWN 10/27/16) pioglitazone (From ACTOS) (UNKNOWN 10/27/16) pregabalin (From LYRICA) (LOSS OF BALANCE 10/27/16) prochlorperazine (From COMPAZINE) (NEURO 10/27/16) propoxyphene (PARANOIA 10/27/16) propranolol (LOW BP 10/27/16) ranolazine (From RANEXA) (LOW BP 10/27/16) sertraline (From ZOLOFT) (UNKNOWN 10/27/16) simvastatin (From VYTORIN) (MUSCLE WEAKNESS, LOW BP 10/27/16) temazepam (From RESTORIL) (UBJ 10/27/16) tiagabine (From GABITRIL) (UNKNOWN 10/27/16) topiramate (From TOPAMAX) (HEADACHE 10/27/16) Home Med list Ascorbic Acid (Vitamin C) 100 MG TABLET 3 TAB PO DAILY SUPPLEMENT (Reported) Biotin 2,500 MCG CAPSULE 2 CAP PO BID SUPPLEMENT (Reported) Botulinum Toxin Type A (Botox) (Unknown Strength) VIAL (Unknown Dose) Q3M UNKNOWN (Reported) Calcium Carb/D3/Magnesium/Zinc (Nrdbwfv-Yen-Fqno-Vit D Tablet) 333 MG-200 UNIT- 133 MG-5 MG TABLET 1 TAB PO DAILY SUPPLEMENT (Reported) Cholecalciferol (Vitamin D3) (Vitamin D) 1,000 UNIT TABLET 1 TAB PO DAILY SUPPLEMENT (Reported) Dexamethasone (Unknown Strength) ELIXIR (Unknown Dose) PO BID RINSE (Reported ) Doxylamine Succinate (Unisom) 25 MG TABLET 2 TAB PO QPM SLEEP (Reported) Ferrous Sulfate 324 MG (65 MG IRON) TABLET.DR 1 TAB PO BID SUPPLEMENT ( Reported) Folic Acid 0.8 MG TABLET 1 TAB PO DAILY SUPPLEMENT (Reported) Insulin Glargine,Hum.rec.anlog (Lantus Solostar) 100 UNIT/ML (3 ML) INSULN.PEN 30 UNIT SC BID DM (Reported) Insulin NPL/Insulin Lispro (Humalog Mix 50-50 Kwikpen) 100 UNIT/ML (50-50) INSULN.PEN 20 U SC QPM DIABETES (Reported) Insulin NPL/Insulin Lispro (Humalog Mix 50-50 Kwikpen) 100 UNIT/ML (50-50) INSULN.PEN 10 U SC 1200 DIABETES (Reported) Loratadine (Claritin) 10 MG TABLET 1 TAB PO DAILY ALLERGIES (Reported) Magnesium 250 MG TABLET 1 TAB PO DAILY SUPPLEMENT (Reported) Melatonin 10 MG TABLET 1 TAB PO QPM SLEEP (Reported) Milk Thistle Seed Extract (Milk Thistle) 200 MG CAPSULE 1 CAP PO DAILY SUPPLEMENT (Reported) Multivitamin (Multiple Vitamins) 1 EACH TABLET 1 TAB PO DAILY SUPPLEMENT ( Reported) Pantoprazole Sodium 40 MG TABLET.DR 1 TAB PO DAILY GI (Reported) Spironolactone (Aldactone) 100 MG TABLET 1 TAB PO DAILY PRN UNKNOWN (Reported ) Trazodone HCl 50 MG TABLET 1 TAB PO QPM SLEEP (Reported) Vitamin B Complex (B Complex) 1 EACH TABLET 1 TAB PO DAILY SUPPLEMENT ( Reported) ZINC 50 MG TABLET 1 TAB PO DAILY SUPPLEMENT (Reported) Past History Travel History Traveled to [place] past 21 day No Medical History Neurological: migraine EENT: cataracts Cardiovascular: NONE Respiratory: NONE Gastrointestinal: NONE Hepatic: NonAlcholic Systemic Hep. Renal: NONE Musculoskeletal: calcaneal spur Psychiatric: insomnia Endocrine: diabetes Blood Disorders: anemia Cancer(s): NONE CLINICAL NUTRITIONIST/Reproductive: NONE History of MRSA: No History of VRE: No History of CDIFF: No Surgical History Surgical History: non-contributory Past Family/Social History Psychosocial History Services at Home: None Review of Systems Review of Systems Constitutional: Reports: no symptoms. Cardiovascular: Reports: no symptoms. Respiratory: Reports: no symptoms. GI: Reports: abdominal pain, nausea, vomiting. Genitourinary: Reports: no symptoms. Musculoskeletal: Reports: no symptoms. Neurological/Psychological: Reports: no symptoms, unable to move lower ext, unable to move upper ext, weakness, other. Exam & Diagnostic Data Last 24 Hrs of Vital Signs/I&O Vital Signs Date Time Temp Pulse Resp B/P B/P Pulse O2 O2 Flow FiO2 Mean Ox Delivery Rate 01/02 2117 97.8 96 20 124/60 97 Room Air 01/02 2037 98.4 90 18 135/66 97 Room Air Room Air 01/02 1752 98.8 93 20 131/61 97 Room Air Room Air 01/02 1711 98.5 88 18 122/68 97 Room Air Room Air 01/02 1435 90 18 117/65 96 Room Air 01/02 1218 98.2 97 18 127/71 96 Intake & Output 01/03 0800 01/03 0000 01/02 1600 Intake Total 2049 0 Output Total Balance 2049 0 Intake, IV 2049 Intake, Oral 0 0 Patient 193 lb 192 lb Weight Weight Reported by Patient Measurement Method Physical Exam General Appearance Alert, Oriented X3, Cooperative, No Acute Distress Cardiovascular Regular Rate, Normal S1, Normal S2, No Murmurs Lungs Clear to Auscultation Abdomen diffuse tenderness Neurological Normal Speech, Strength at 5/5 X4 Ext, Normal Tone, Sensation Intact Extremities No Cyanosis, No Edema, Normal Pulses Last 24 Hrs of Labs/Arturo: Laboratory Tests 01/02/18 1226: Anion Gap 12, Estimated GFR > 60, BUN/Creatinine Ratio 34.3 H, Glucose 177 H, Calcium 8.5, Magnesium 1.5 L, Total Bilirubin 4.3 H, AST 35, ALT 33, Alkaline Phosphatase 63, Total Protein 5.8 L, Albumin 3.2 L, Globulin 2.6, Albumin/ Globulin Ratio 1.2, Amylase 49, Lipase 71, PT 17.5 H, INR 1.60 H, CBC w Diff NO MAN DIFF REQ, RBC 4.35, MCV 96.4, MCH 34.2 H, MCHC 35.5, RDW 14.6 H, MPV 7.1 L, Gran % 81.1 H, Lymphocytes % 9.9 L, Monocytes % 8.4, Eosinophils % 0.4 , Basophils % 0.2, Absolute Granulocytes 6.3, Absolute Lymphocytes 0.8 L, Absolute Monocytes 0.7 H, Absolute Eosinophils 0, Absolute Basophils 0 Microbiology 05/08 1600 STOOL: Clostridium difficile Toxin A & B - RECD 01/03 1600 STOOL: Stool Culture - RECD Assessment/Plan Assessment: 57-year-old female with past medical history of diabetes, GORMAN,antiphospholipid antibody syndrome, remote history of DVT, migraine, hemorrhoids, came to [facility] complains of nausea, vomiting, diarrhea for the past 3 days. Admission vitals Temperature 98.5, pulse rate 88, respiratory rate 18, blood pressure 122/68, pulse oximetry-97 at room air. Admission labs W BC 7.8, hemoglobin 14.9, platelet count 70, sodium 138, potassium 4.1, BUN 24, creatinine 0.7, medication 1.5, total bilirubin 4.3. Imaging Abdominal CAT scan 1. Cirrhosis, portal venous hypertension and splenomegaly. 2. Mild lymphadenopathy in the periportal region is likely reactive to the hepatic disease. 3. Pancolitis; however, no evidence of toxic megacolon. 4. Small amount of free fluid is present within the pelvis. Ultrasound abdomen 1. There is generalized increase in hepatic echotexture, consistent with fatty infiltration or hepatocellular disease. Please correlate clinically. No focal hepatic mass or intrahepatic biliary dilatation is seen. 2. The gallbladder is surgically absent. 3. Limited ultrasound examination of the pancreatic tail. Assessment and plan 1. Nausea/vomiting/diarrhea-CAT scan showing pancolitis 2. Diabetes on insulin 3. Gorman 4. APLA A& P * Admit in gen med. * N,V,Diarrhea- differentials-colitis,infectious etiology, IBD,medications side effects. we will startr her on cipro and flagyl, ivf @100 ml,inj zofran prn, dicyclomine for pain abd prn. * accu check and novolog sliding scale insulin. * gorman-stable .f/u outpt * apla-f/u with her sr. unix system administrator * code-full code * diet-clear liquids As Ranked By This Provider Problem List: 1. Nausea and vomiting 2. Headache 3. Migraine headache 4. Diabetes mellitus Core Measures/Misc (05/14) Acute Coronary Syndrome ACS Diagnosis: No Congestive Heart Failure Congestive Heart Failure Diagnosis No Cerebrovascular Accident CVA/TIA Diagnosis: No VTE (View Protocol) VTE Risk Factors Age>40 No Mechanical VTE Prophylaxis d/t Other No VTE Pharm Prophylaxis d/t Other Sepsis (View protocol) Sepsis Present: No Apergis MD,Yiannis 01/02/18 2142: Attending MD Review Statement Attending Statement Attending MD Statement: examined this patient, discuss w/resident/PA/SANDFILL OPERATOR, agreed w/resident/PA/SANDFILL OPERATOR, reviewed EMR data (avail) Attending Assessment/Plan: 57F PMH anti-phospholipid syndrome, GORMAN cirrhosis, cluster headaches, TIA presenting with 2 days of intractable nausea and vomiting with profuse watery diarrhea. Unable to tolerate PO, dehydrated, bilirubin at 4.3 (last was 2 years ago 1.4), will admit for IV hydration and symptom control, Cipro, Flagyl, sent C.diff, monitor LFTs, consider GI consult. Austin CUNNINGHAM,[facility] 01/02/18 2208: Resident Review Statement Resident Statement: examined this patient, discussed with environmental health and safety intern, agreed with environmental health and safety intern, discussed with family Other Findings: Patient is 57 year old female with past medical history significant for migraine , Gorman with thrombocytopenia, antiphospholipid antibody not on anticoagulation or aspirin was 10 years ago on Coumadin but was discontinued probably because of thrombocytopenia, questionable TIA 2013, diabetes on insulin who presented to ED with chief complaint of diarrhea for 3 days. Patient reported worsening watery diarrhea with no blood or mucus or malodor for the last 3 days, today in ED started to have watery bloody diarrhea for the first time associated with nausea but no vomiting today. Patient reported history of vomiting yesterday 5-6 times. Patient reported history of antibiotic use in early November ),reported history of outside fluid Lobester on Monday, patient started to have symptoms on Monday. She denied any similar symptoms before. Problem list Matt colitis History of Gorman Antiphospholipid antibody Chronic thrombocytopenia Diabetes on insulin Plan Admitted to general medical floor Vitals every shift Strict ins and outs Nothing by mouth IV fluid Accu-Chek and NovoLog sliding scale every 6 hours Levemir 15 twice a day Ciprofloxacin and metronidazole GI consultation a.m. Hold off all none essential medication Code full DVT prophylaxis Alps
[2018-01-02 21:17] VITALS: BP 124/60
--- NOTE | 2018-01-03 04:57 | PN- Housestaff ---
Subjective Follow-up For: Colitis-ischemic/inflammatory. Complaints: no complaints Subjective: Patient seen and examined at bedside. No overnight events. Complaints of mild week of abdominal pain. 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 No nausea or vomiting. Denies chest pain, shortness of breath, weakness. Review of Systems Constitutional: Reports: no symptoms, see HPI. Objective Last 24 Hrs of Vital Signs/I&O Vital Signs Date Time Temp Pulse Resp B/P B/P Pulse O2 O2 Flow FiO2 Mean Ox Delivery Rate 01/03 622 98.5 92 20 100/64 96 Room Air 01/02 2117 97.8 96 20 124/60 97 Room Air 01/02 2037 98.4 90 18 135/66 97 Room Air Room Air 01/02 1752 98.8 93 20 131/61 97 Room Air Room Air 01/02 1711 98.5 88 18 122/68 97 Room Air Room Air 01/02 1435 90 18 117/65 96 Room Air Intake & Output 01/03 1600 01/03 0800 01/03 0000 Intake Total 600 2050 Output Total 200 Balance 400 0 Intake, IV 600 0 Intake, Oral 0 0 Output, Stool 200 Patient 193 lb Weight Weight Reported by Patient Measurement Method Physical Exam General Appearance: Alert, Oriented X3, Cooperative, No Acute Distress Cardiovascular: Normal S1, Normal S2, No Murmurs Lungs: Normal Air Movement Abdomen: Soft, No Tenderness, No Hepatospenomegaly Neurological: Normal Speech, Strength at 5/5 X4 Ext, Normal Tone, Sensation Intact Extremities: No Edema Current Medications: Current Medications Sig/Harry Start time Last Medication Dose Route Stop Time Status Admin Acetaminophen 650 MG ONCE ONE 01/03 930 DC PO 01/03 0931 Acetaminophen/ 1 TAB Q4P PRN 01/03 1000 AC 01/03 Butalbital/Caffeine PO 1209 Ciprofloxacin 400 MG Q12 01/02 2205 AC 01/03 Dextrose/Water 200 ML IV 09 Ciprofloxacin 400 MG ONCE ONE 01/02 1800 DC / IV 01/02 1801 1834 Dextrose/Sodium 1,000 ML Q13H 01/03 0900 AC 01/03 Chloride IV 0906 Dextrose/Sodium 1,000 ML .[id number] 01/02 2215 DC 01/02 Chloride IV 2232 Ibuprofen 400 MG 4 TIMES/DAY PRN 01/03 1000 AC 01/03 PO 0951 Insulin Detemir 15 UNITS BID 01/02 2207 AC 01/03 SC 0906 Insulin Human Regular 4 UNITS .STK-MED ONE 01/03 0553 DC IV 01/03 0554 Insulin Human Regular 4 UNITS .STK-MED ONE 01/03 0049 DC IV 01/03 0050 Insulin Human Regular 0 Q6 01/02 2359 AC 01/03 SC 1209 Magnesium Oxide 800 MG ONE ONE 01/02 1545 DC 05/08 PO 05 1546 1753 Metronidazole 500 MG IQ8 01/03 0000 AC 01/03 N/A 1 UNIT IV 0748 Metronidazole 500 MG ONCE ONE 01/02 1800 DC 01/02 N/A 1 UNIT IV 01/02 1859 2030 Morphine Sulfate 2 MG ONCE ONE 01/03 0115 DC 01/03 IV 01/03 0116 0114 Morphine Sulfate 0 .STK-MED ONE 01/02 2032 DC .ROUTE Morphine Sulfate 4 MG ONCE ONE 01/02 1845 DC 05/08 IV 05/ 1846 2030 Morphine Sulfate 0 .STK-MED ONE 01/02 1631 DC .ROUTE Morphine Sulfate 4 MG ONCE ONE 01/02 1545 DC 05/08 IV 05/08 1546 1649 Ondansetron HCl 4 MG Q6P PRN 01/03 0045 AC 01/03 IV 0046 Ondansetron HCl 0 .STK-MED ONE 01/02 1632 DC .ROUTE Ondansetron HCl 4 MG ONCE ONE 01/02 1545 DC 05/08 IV 05/08 1546 1634 Sodium Chloride 1,000 ML BOLUS ONE 01/02 1545 DC 05/08 IV 05/08 1744 1649 Sodium Chloride 1,000 ML BOLUS ONE 01/02 1545 DC 05/08 IV 05/08 1744 1834 Last 24 Hrs of Lab/Arturo Results Last 24 Hrs of Labs/Mics: Laboratory Tests 01/03/18 0950: Ammonia 16 01/03/18 0720: Anion Gap 7, Estimated GFR > 60, BUN/Creatinine Ratio 36.0 H, Total Bilirubin 2.7 H, Direct Bilirubin 0.6 H, AST 31, ALT 29, Alkaline Phosphatase 47, Total Protein 4.8 L, Albumin 2.5 L, CBC w Diff NO MAN DIFF REQ, RBC 3.71 L, MCV 98.2, MCH 33.5 H, MCHC 34.2, RDW 14.7 H, MPV 7.1 L, Gran % 70.2, Lymphocytes % 15.7 L, Monocytes % 12.8 H, Eosinophils % 0.7, Basophils % 0.6, Absolute Granulocytes 2.7, Absolute Lymphocytes 0.6 L, Absolute Monocytes 0.5, Absolute Eosinophils 0, Absolute Basophils 0 Microbiology 01/03 1150 STOOL: Vibrio Culture - RECD 01/02 1600 STOOL: Clostridium difficile Toxin A & B - RES 01/02 1600 STOOL: Stool Culture - RES Assessment/Plan Assessment: 57-year-old female with past medical history of diabetes, VILLEDA,antiphospholipid antibody syndrome, remote history of DVT, migraine, hemorrhoids, came to [facility] complains of nausea, vomiting, diarrhea for the past 3 days. Assessment and plan 1. Nausea/vomiting/diarrhea-CAT scan showing pancolitis 2. Diabetes on insulin 3. Villeda 4. APLA * Colitis-ischemia/inflammatory Patient is on Cipro and Flagyl will continue the same. Patient is nothing by mouth for now. Patient will be seen by gastroenterology. Continue IV fluids, Zofran. * Pending C. difficile and stool culture. We have sent stool for vibrio in view of patient developed all the symptoms following intake of lobster. * accu check and novolog sliding scale insulin. * Migraine headache-Motrin, Fioricet. No visual symptoms. * villeda-stable .f/u outpt * apla-f/u with her group cio * code-full code * diet-nothing by mouth Problem List: 1. Pancolitis Pain Ratin Pain Location: Abdomen Pain Goal: Remain pain free Pain Plan: Motrin, Tomorrow's Labs & Rationales: CBC
[2018-01-03 06:22] VITALS: BP 100/64
--- NOTE | 2018-01-03 07:28 | PN- Student ---
Subjective Subjective: Patient is feeling slightly better. Her headache has improved and she doesn't have any back pain. She is still having bloody stools. She had an episode of nausea and vomiting yesterday night. When asked if she recalls eating anything out of the ordinary, she said she had a lobster roll on Monday. Objective Objective: Vital Signs Date Time Temp Pulse Resp B/P B/P Pulse O2 O2 Flow FiO2 Mean Ox Delivery Rate 01/03 622 98.5 92 20 100/64 96 Room Air 01/02 2117 97.8 96 20 124/60 97 Room Air 01/02 2037 98.4 90 18 135/66 97 Room Air Room Air 01/02 1752 98.8 93 20 131/61 97 Room Air Room Air 01/02 1711 98.5 88 18 122/68 97 Room Air Room Air 01/02 1435 90 18 117/65 96 Room Air Intake & Output 01/03 1600 01/03 0800 01/03 0000 Intake Total 600 2050 Output Total 200 Balance 400 0 Intake, IV 600 0 Intake, Oral 0 0 Output, Stool 200 Patient 193 lb Weight Weight Reported by Patient Measurement Method Physical Exam General Appearance: alert, awake, cooperative, oriented x3 Head: atraumatic Ears, Nose, Throat, Mouth: moist mucous membrane, left lower lip ulcer Neck: normal inspection, full range of motion, no midline tenderness Respiratory: no respiratory distress, lungs clear Cardiovascular: regular rate/rhythm Gastrointestinal: soft, tenderness Comments: Abdomen: Moderate epigastric TTP without rebound or guarding Rectal: Watery brown-red guaiac (+) stool Current Medications Sig/Harry Start time Last Medication Dose Route Stop Time Status Admin Acetaminophen 650 MG ONCE ONE 01/03 930 DC PO 01/03 0931 Acetaminophen/ 1 TAB Q4P PRN 01/03 1000 AC 01/03 Butalbital/Caffeine PO 1209 Ciprofloxacin 400 MG Q12 01/02 2205 AC 01/03 Dextrose/Water 200 ML IV 09 Ciprofloxacin 400 MG ONCE ONE 01/02 1800 DC 01/02 IV 01/02 1801 1834 Dextrose/Sodium 1,000 ML Q13H 01/03 0900 AC 01/03 Chloride IV 0906 Dextrose/Sodium 1,000 ML .[id number] 01/02 2215 DC 01/02 Chloride IV 2232 Ibuprofen 400 MG 4 TIMES/DAY PRN 01/03 1000 AC 01/03 PO 0951 Insulin Detemir 15 UNITS BID 01/02 2207 AC 01/03 SC 0906 Insulin Human Regular 4 UNITS .STK-MED ONE 01/03 0553 DC IV 01/03 0554 Insulin Human Regular 4 UNITS .STK-MED ONE 01/03 0049 DC IV 01/03 0050 Insulin Human Regular 0 Q6 01/02 2359 AC 01/03 SC 1209 Magnesium Oxide 800 MG ONE ONE 01/02 1545 DC 05/08 PO 0508 1546 1753 Metronidazole 500 MG IQ8 01/03 0000 AC 05 N/A 1 UNIT IV 0748 Metronidazole 500 MG ONCE ONE 01/02 1800 DC 05 N/A 1 UNIT IV 05 1859 2030 Morphine Sulfate 2 MG ONCE ONE 01/03 0115 DC / IV 01/03 0116 0114 Morphine Sulfate 0 .STK-MED ONE 01/02 2032 DC .ROUTE Morphine Sulfate 4 MG ONCE ONE 01/02 1845 DC 05/08 IV 05/ 1846 2030 Morphine Sulfate 0 .STK-MED ONE 01/02 1631 DC .ROUTE Morphine Sulfate 4 MG ONCE ONE 01/02 1545 DC 05/08 IV 05/08 1546 1649 Ondansetron HCl 4 MG Q6P PRN 01/03 0045 AC 01/03 IV 0046 Ondansetron HCl 0 .STK-MED ONE 01/02 1632 DC .ROUTE Ondansetron HCl 4 MG ONCE ONE 01/02 1545 DC 05/08 IV 05/08 1546 1634 Sodium Chloride 1,000 ML BOLUS ONE 01/02 1545 DC 05/08 IV 05/08 1744 1649 Sodium Chloride 1,000 ML BOLUS ONE 01/02 1545 DC 05/08 IV 05/08 1744 1834 Last 24 Hrs of Lab/Arturo Results Last 24 Hrs of Labs/Mics: Laboratory Tests 01/03/18 0950: Ammonia 16 01/03/18 0720: Anion Gap 7, Estimated GFR > 60, BUN/Creatinine Ratio 36.0 H, Total Bilirubin 2.7 H, Direct Bilirubin 0.6 H, AST 31, ALT 29, Alkaline Phosphatase 47, Total Protein 4.8 L, Albumin 2.5 L, CBC w Diff NO MAN DIFF REQ, RBC 3.71 L, MCV 98.2, MCH 33.5 H, MCHC 34.2, RDW 14.7 H, MPV 7.1 L, Gran % 70.2, Lymphocytes % 15.7 L, Monocytes % 12.8 H, Eosinophils % 0.7, Basophils % 0.6, Absolute Granulocytes 2.7, Absolute Lymphocytes 0.6 L, Absolute Monocytes 0.5, Absolute Eosinophils 0, Absolute Basophils 0 Microbiology 01/03 1150 STOOL: Vibrio Culture - RECD 01/02 1600 STOOL: Clostridium difficile Toxin A & B - RES 01/03 1600 STOOL: Stool Culture - RES Assessment/Plan Assessment: Mrs. Burt is a 57 y/o female with a PMH of diabetes, VILLEDA, antiphospholipid antibody syndrome, remote history of DVT, migraine and hemorrhoids, that came complaining of nausea, vomiting and diarrhea for the past 4 days. Patient was in her usual state of health until 3 days ago following which patient developed multiple episodes of diarrhea (+10) with no blood. On Monday patient had 5-6 episodes of vomiting with no blood. Patient has been having bloody diarrhea since yesterday. She also said that she ate a lobster roll on Monday which makes us suspect a possible infection with Vibrio vulnificans. Problem list and plan: 1. Diarrhea: CT shows pancolitis which could be linked to her APS as she has had multiple complications due to it (mouth ulcers, miscarriages, DVT). If that is the case, ischemic colitis is suspected. Her pancolitis could also be due to an infectious ethiology. For that, stool culture has been collected and we are testing C. diff. Due to the new information that we got regarding her lobster ingestion, Vibrio vulnificans infection is suspected. Risk factors for Vibrio vulnificans infection include DM and an underlying liver disease and we know that our patient has VILLEDA. For this reason, we are testing her stool for the above mentioned pathogen, which sounds like the most likely reason for her diarrhea. Another differential could be IBD (although patient follows up with a cigar sorter and it hasn't been diagnosed before) or medication side effects. GI will be coming later today and we will follow up on his recommendation. For now, Cipro and dicyclomine will be continued. 2. Dehydration: Hydrate with normal saline. 3. DM: administer insulin regimen. Monitor blood sugar levels. 4. VILLEDA: follow with GI as an outpatient 5. APL: follow with heme as an outpatient 6. Thrombocytopenia and anemia: monitor levels
--- NOTE | 2018-01-03 07:31 | PN- Student ---
Subjective Subjective: Mrs. Burt is a 57 y/o female with a PMH of diabetes, VILLEDA, antiphospholipid antibody syndrome, remote history of DVT, migraine and hemorrhoids, that came complaining of nausea, vomiting and diarrhea for the past 3 days. Patient was in her usual state of health until 3 days ago following which patient developed multiple episodes of diarrhea (+10) with no blood. Yesterday patient had 5-6 episodes of vomiting with no blood. Today at the hospital she has had two episodes of bloody diarrhea. She hasn't had any vomiting or nausea today. Patient describes weakness, abdominal pain /10 and a headache / while interviewing. She also complains of pain in her lower back. Patient denies fever, chills, chest pain, SOB or any sick contacts. Patient states that right after being taken to get the CAT scan (and before administration of any medication) she had an episode of generalized shakes. Allergies/Medications Allergies: Coded Allergies: Estrogens (CONTRAINDICATED 10/27/16) amitriptyline (From ELAVIL) (UNKNOWN 10/27/16) aspirin (From AGGRENOX) (LEG CRAMPS 10/27/16) banana (MIGRAINE HEADACHE 10/27/16) carvedilol (From COREG) (LOW BP 10/27/16) dipyridamole (From AGGRENOX) (LEG CRAMPS 10/27/16) divalproex sodium (From DEPAKOTE) (LOSING HAIR 10/27/16) ezetimibe (From VYTORIN) (MUSCLE WEAKNESS, LOW BP 10/27/16) fentanyl (UNKNOWN/CONFUSION 10/27/16) gemfibrozil (From LOPID) (MUSCLE WEAKNESS 10/27/16) hydroxychloroquine (From PLAQUENIL) (LEG CRAMPS 10/27/16) ketorolac (From TORADOL) (HEADACHE 10/27/16) methysergide (From SANSERT) (N/V 10/27/16) metoclopramide (From REGLAN) (INVOLUNTARY MOVEMENTS WITH LIFE MANAGER WEAKNESS 10/14) olanzapine (From ZYPREXA) (UNKNOWN 10/27/16) onion (MIGRAINES 10/27/16) paroxetine (From PAXIL) (UNKNOWN 10/27/16) pioglitazone (From ACTOS) (UNKNOWN 10/27/16) pregabalin (From LYRICA) (LOSS OF BALANCE 10/27/16) prochlorperazine (From COMPAZINE) (NEURO 10/27/16) propoxyphene (PARANOIA 10/27/16) propranolol (LOW BP 10/27/16) ranolazine (From RANEXA) (LOW BP 10/27/16) sertraline (From ZOLOFT) (UNKNOWN 10/27/16) simvastatin (From VYTORIN) (MUSCLE WEAKNESS, LOW BP 10/27/16) temazepam (From RESTORIL) (UBJ 10/27/16) tiagabine (From GABITRIL) (UNKNOWN 10/27/16) topiramate (From TOPAMAX) (HEADACHE 10/27/16) Home Med list Ascorbic Acid (Vitamin C) 100 MG TABLET 3 TAB PO DAILY SUPPLEMENT (Reported) Biotin 2,500 MCG CAPSULE 2 CAP PO BID SUPPLEMENT (Reported) Botulinum Toxin Type A (Botox) (Unknown Strength) VIAL (Unknown Dose) Q3M UNKNOWN (Reported) Calcium Carb/D3/Magnesium/Zinc (Sxebuzs-Pvh-Yoee-Vit D Tablet) 333 MG-200 UNIT- 133 MG-5 MG TABLET 1 TAB PO DAILY SUPPLEMENT (Reported) Cholecalciferol (Vitamin D3) (Vitamin D) 1,000 UNIT TABLET 1 TAB PO DAILY SUPPLEMENT (Reported) Dexamethasone (Unknown Strength) ELIXIR (Unknown Dose) PO BID RINSE (Reported ) Doxylamine Succinate (Unisom) 25 MG TABLET 2 TAB PO QPM SLEEP (Reported) Ferrous Sulfate 324 MG (65 MG IRON) TABLET.DR 1 TAB PO BID SUPPLEMENT ( Reported) Folic Acid 0.8 MG TABLET 1 TAB PO DAILY SUPPLEMENT (Reported) Insulin Glargine,Hum.rec.anlog (Lantus Solostar) 100 UNIT/ML (3 ML) INSULN.PEN 30 UNIT SC BID DM (Reported) Insulin NPL/Insulin Lispro (Humalog Mix 50-50 Kwikpen) 100 UNIT/ML (50-50) INSULN.PEN 20 U SC QPM DIABETES (Reported) Insulin NPL/Insulin Lispro (Humalog Mix 50-50 Kwikpen) 100 UNIT/ML (50-50) INSULN.PEN 10 U SC 1200 DIABETES (Reported) Loratadine (Claritin) 10 MG TABLET 1 TAB PO DAILY ALLERGIES (Reported) Magnesium 250 MG TABLET 1 TAB PO DAILY SUPPLEMENT (Reported) Melatonin 10 MG TABLET 1 TAB PO QPM SLEEP (Reported) Milk Thistle Seed Extract (Milk Thistle) 200 MG CAPSULE 1 CAP PO DAILY SUPPLEMENT (Reported) Multivitamin (Multiple Vitamins) 1 EACH TABLET 1 TAB PO DAILY SUPPLEMENT ( Reported) Pantoprazole Sodium 40 MG TABLET.DR 1 TAB PO DAILY GI (Reported) Spironolactone (Aldactone) 100 MG TABLET 1 TAB PO DAILY PRN UNKNOWN (Reported ) Trazodone HCl 50 MG TABLET 1 TAB PO QPM SLEEP (Reported) Vitamin B Complex (B Complex) 1 EACH TABLET 1 TAB PO DAILY SUPPLEMENT ( Reported) ZINC 50 MG TABLET 1 TAB PO DAILY SUPPLEMENT (Reported) PMH: Neurological: migraine EENT: cataracts, mouth ulcers Cardiovascular: DVT Respiratory: NONE Gastrointestinal: NONE Hepatic: VILLEDA Renal: NONE Musculoskeletal: calcaneal spur Psychiatric: insomnia Endocrine: diabetes Blood Disorders: anemia Cancer(s): left lower lip ulcer (precancerous, scheduled to be removed in February) SYSTEM DEVELOPMENT MANAGER/Reproductive: A3 Surgical history: Umbilical hernia repair, cholecystectomy, hysterectomy, oophorectomy, tonsillectomy Family history: Niece has Chron's disease. Maternal aunt had colon cancer. Social history: Patient lives at home with her . She is disabled, has no travel history, doesn't smoke, drink or use illicit drugs. Objective Objective: Vital Signs & Intake/Output Vital Signs Date Time Temp Pulse Resp B/P B/P Pulse O2 O2 Flow FiO2 Mean Ox Delivery Rate 01/02 1752 98.8 93 20 131/61 97 Room Air Room Air 01/02 1711 98.5 88 18 122/68 97 Room Air Room Air 01/02 1435 90 18 117/65 96 Room Air 01/02 1218 98.2 97 18 127/71 96 Laboratory Tests 01/02/18 1226: Anion Gap 12, Estimated GFR > 60, BUN/Creatinine Ratio 34.3 H, Glucose 177 H, Calcium 8.5, Magnesium 1.5 L, Total Bilirubin 4.3 H, AST 35, ALT 33, Alkaline Phosphatase 63, Total Protein 5.8 L, Albumin 3.2 L, Globulin 2.6, Albumin/ Globulin Ratio 1.2, Amylase 49, Lipase 71, PT 17.5 H, INR 1.60 H, CBC w Diff NO MAN DIFF REQ, RBC 4.35, MCV 96.4, MCH 34.2 H, MCHC 35.5, RDW 14.6 H, MPV 7.1 L, Gran % 81.1 H, Lymphocytes % 9.9 L, Monocytes % 8.4, Eosinophils % 0.4 , Basophils % 0.2, Absolute Granulocytes 6.3, Absolute Lymphocytes 0.8 L, Absolute Monocytes 0.7 H, Absolute Eosinophils 0, Absolute Basophils 0 Microbiology 01/03 1600 STOOL: Clostridium difficile Toxin A & B - RECD 01/03 1600 STOOL: Stool Culture - RECD Physical Exam General Appearance: alert, awake, cooperative, oriented x3 Head: atraumatic Ears, Nose, Throat, Mouth: moist mucous membrane, left lower lip ulcer Neck: normal inspection, full range of motion, no midline tenderness Respiratory: no respiratory distress, lungs clear Cardiovascular: regular rate/rhythm Gastrointestinal: soft, tenderness Comments: Abdomen: Moderate epigastric TTP without rebound or guarding Rectal: Watery brown-red guaiac (+) stool Imaging: Abdominal CAT scan 1. Cirrhosis, portal venous hypertension and splenomegaly. 2. Mild lymphadenopathy in the periportal region is likely reactive to the hepatic disease. 3. Pancolitis; however, no evidence of toxic megacolon. 4. Small amount of free fluid is present within the pelvis. Ultrasound abdomen 1. There is generalized increase in hepatic echotexture, consistent with fatty infiltration or hepatocellular disease. Please correlate clinically. No focal hepatic mass or intrahepatic biliary dilatation is seen. 2. The gallbladder is surgically absent. 3. Limited ultrasound examination of the pancreatic tail. Assessment/Plan Assessment: Mrs. Burt is a 57 y/o female with a PMH of diabetes, VILLEDA, antiphospholipid antibody syndrome, remote history of DVT, migraine and hemorrhoids, that came complaining of nausea, vomiting and diarrhea for the past 3 days. Patient was in her usual state of health until 3 days ago following which patient developed multiple episodes of diarrhea (+10) with no blood. Yesterday patient had 5-6 episodes of vomiting with no blood. Today at the hospital she has had two episodes of bloody diarrhea. Problem list and plan: 1. Diarrhea: CT shows pancolitis which could be linked to her APS as she has had multiple complications due to it (mouth ulcers, miscarriages, DVT). If that is the case, ischemic colitis is suspected. Her pancolitis could also be due to an infectious ethiology. For that, stool culture has been collected and we are testing C. diff. Another differential could be IBD (although patient follows up with a pre sales technical consultant and it hasn't been diagnosed before) or medication side effects. Cipro and dicyclomine will be started. GI consult has been requested. NPO until consult occurs. 2. Dehydration: Hydrate with normal saline. 3. DM: administer insulin regimen. Monitor blood sugar levels. 4. VILLEDA: follow with GI as an outpatient 5. APL: follow with heme as an outpatient 6. Thrombocytopenia and anemia: monitor levels
[2018-01-03 08:17] LABS: ABSOLUTE BASOPHIL COUNT 0 /CUMM (0.0-0.2); ABSOLUTE EOSINOPHIL COUNT 0 /CUMM (0.0-0.7); ABSOLUTE GRANULOCYTE CT 2.7 /CUMM (1.4-6.5); ABSOLUTE LYMPH COUNT 0.6 /CUMM (1.2-3.4); ABSOLUTE MONOCYTE COUNT 0.5 /CUMM (0.10-0.60); BASOPHIL % 0.6 % (0.0-2.0); EOSINOPHIL % 0.7 % (0-5); GRANULOCYTE % 70.2 % (42.2-75.2); MEAN CORPUSCULAR HGB 33.5 PG (27.0-31.0); MEAN CORPUSCULAR HGB CONC 34.2 G/DL (33.0-37.0); MEAN CORPUSCULAR VOLUME 98.2 FL (81.0-99.0); MEAN PLATELET VOLUME 7.1 FL (7.4-10.4); RBC DISTRIBUTION WIDTH 14.7 % (11.5-14.5); RED BLOOD CELL CT 3.71 /CUMM (4.20-5.40); WHITE BLOOD CELL COUNT 3.9 /CUMM (4.8-10.8)
[2018-01-03 08:49] LABS: HEMATOCRIT 36.4 % (37-47)
[2018-01-03 09:18] LABS: PLATELET COUNT 43 /CUMM (130-400)
--- NOTE | 2018-01-03 11:53 | PN- Att Addend ---
Attending Addendum Attending Brief Note Patient seen and examined, complains of headache. Also having abdominal discomfort. Patient is admitted with bloody diarrhea and imaging evidence of pancolitis. Vital Signs Date Time Temp Pulse Resp B/P B/P Pulse O2 O2 Flow FiO2 Mean Ox Delivery Rate 01/03 0622 98.5 92 20 100/64 96 Room Air 01/02 2117 97.8 96 20 124/60 97 Room Air 01/02 2037 98.4 90 18 135/66 97 Room Air Room Air 01/02 1752 98.8 93 20 131/61 97 Room Air Room Air 01/02 1711 98.5 88 18 122/68 97 Room Air Room Air 01/02 1435 90 18 117/65 96 Room Air 01/02 1218 98.2 97 18 127/71 96 on exam; aox3, nad. cv; s1,s2, rrr resp; clear abd; soft, mildly generalized tenderness, bs+ ext; no edema Laboratory Tests 01/03 01/03 0950 0720 Chemistry Sodium (137 - 145 mmol/L) 135 L Potassium (3.5 - 5.1 mmol/L) 3.8 Chloride (98 - 107 mmol/L) 104 Carbon Dioxide (22 - 30 mmol/L) 25 Anion Gap (5 - 16) 7 BUN (7 - 17 mg/dL) 18 H Creatinine (0.5 - 1.0 mg/dL) 0.5 Estimated GFR (>60 ml/min) > 60 BUN/Creatinine Ratio (7 - 25 %) 36.0 H Total Bilirubin (0.2 - 1.3 mg/dL) 2.7 H Direct Bilirubin (< 0.4 mg/dL) 0.6 H AST (14 - 36 U/L) 31 ALT (9 - 52 U/L) 29 Alkaline Phosphatase (<127 U/L) 47 Ammonia (9 - 30 umol/L) 16 Total Protein (6.3 - 8.2 g/dL) 4.8 L Albumin (3.5 - 5.0 g/dL) 2.5 L Hematology CBC w Diff NO MAN DIFF REQ WBC (4.8 - 10.8 /CUMM) 3.9 L RBC (4.20 - 5.40 /CUMM) 3.71 L Hgb (12.0 - 16.0 G/DL) 12.4 Hct (37 - 47 %) 36.4 L MCV (81.0 - 99.0 FL) 98.2 MCH (27.0 - 31.0 PG) 33.5 H MCHC (33.0 - 37.0 G/DL) 34.2 RDW (11.5 - 14.5 %) 14.7 H Plt Count (130 - 400 /CUMM) 43 L MPV (7.4 - 10.4 FL) 7.1 L Gran % (42.2 - 75.2 %) 70.2 Lymphocytes % (20.5 - 51.1 %) 15.7 L Monocytes % (1.7 - 9.3 %) 12.8 H Eosinophils % (0 - 5 %) 0.7 Basophils % (0.0 - 2.0 %) 0.6 Absolute Granulocytes (1.4 - 6.5 /CUMM) 2.7 Absolute Lymphocytes (1.2 - 3.4 /CUMM) 0.6 L Absolute Monocytes (0.10 - 0.60 /CUMM) 0.5 Absolute Eosinophils (0.0 - 0.7 /CUMM) 0 Absolute Basophils (0.0 - 0.2 /CUMM) 0 01/02 1226 Chemistry Sodium (137 - 145 mmol/L) 138 Potassium (3.5 - 5.1 mmol/L) 4.1 Chloride (98 - 107 mmol/L) 105 Carbon Dioxide (22 - 30 mmol/L) 21 L Anion Gap (5 - 16) 12 BUN (7 - 17 mg/dL) 24 H Creatinine (0.5 - 1.0 mg/dL) 0.7 Estimated GFR (>60 ml/min) > 60 BUN/Creatinine Ratio (7 - 25 %) 34.3 H Glucose (65 - 99 mg/dL) 177 H Calcium (8.4 - 10.2 mg/dL) 8.5 Magnesium (1.6 - 2.3 mg/dL) 1.5 L Total Bilirubin (0.2 - 1.3 mg/dL) 4.3 H AST (14 - 36 U/L) 35 ALT (9 - 52 U/L) 33 Alkaline Phosphatase (<127 U/L) 63 Total Protein (6.3 - 8.2 g/dL) 5.8 L Albumin (3.5 - 5.0 g/dL) 3.2 L Globulin (1.9 - 4.2 gm/dL) 2.6 Albumin/Globulin Ratio (1.1 - 2.2 %) 1.2 Amylase (30 - 110 U/L) 49 Lipase (23 - 300 U/L) 71 Coagulation PT (9.4 - 12.5 SEC) 17.5 H INR (0.90 - 1.19) 1.60 H Hematology CBC w Diff NO MAN DIFF REQ WBC (4.8 - 10.8 /CUMM) 7.8 RBC (4.20 - 5.40 /CUMM) 4.35 Hgb (12.0 - 16.0 G/DL) 14.9 Hct (37 - 47 %) 42.0 MCV (81.0 - 99.0 FL) 96.4 MCH (27.0 - 31.0 PG) 34.2 H MCHC (33.0 - 37.0 G/DL) 35.5 RDW (11.5 - 14.5 %) 14.6 H Plt Count (130 - 400 /CUMM) 70 L MPV (7.4 - 10.4 FL) 7.1 L Gran % (42.2 - 75.2 %) 81.1 H Lymphocytes % (20.5 - 51.1 %) 9.9 L Monocytes % (1.7 - 9.3 %) 8.4 Eosinophils % (0 - 5 %) 0.4 Basophils % (0.0 - 2.0 %) 0.2 Absolute Granulocytes (1.4 - 6.5 /CUMM) 6.3 Absolute Lymphocytes (1.2 - 3.4 /CUMM) 0.8 L Absolute Monocytes (0.10 - 0.60 /CUMM) 0.7 H Absolute Eosinophils (0.0 - 0.7 /CUMM) 0 Absolute Basophils (0.0 - 0.2 /CUMM) 0 A/P; 57 y/o F with pmh sig for diabetes, VILLEDA,antiphospholipid antibody syndrome , remote history of DVT, migraine, hemorrhoids, used to be on anticoagulation more than 10 years ago and also Plavix more than 5 years ago now not on any anti -regulation of blood thinning agents, admitted with nausea vomiting diarrhea and abdominal pain and found to have pancolitis on abdominal CT. Patient had an episode of bloody diarrhea in the emergency room. She did report eating oyster few days ago at a restaurant. Patient currently on Cipro and Flagyl. With her history off and a phospholipid as well as eating oysters there is some concern for possible ischemic versus infectious colitis. Vibrio vulnificus will be there on the differential (hx of Oyster eating). Will ask the laboratory to isolate that also in the specimen medium if it grows. Patient currently nothing by mouth. Will keep nothing by mouth for now and if she remains stable then later restarted her. Liquid diet. Continue IV fluids. GI has been consulted. Please make sure not to drop her blood pressure and continue giving her IVFs for hydration. DVT px; ALPS 2/2 to thrombocytopenia.
[2018-01-03 14:50] VITALS: BP 110/70
--- NOTE | 2018-01-03 19:52 | Cons- Gastroenterology ---
General Information and HPI Consulting Request Date of Consult: 01/03/18 Requested By: Shorty CUNNINGHAMLashae Reason for Consult: Bloody diarrhea Allergies/Medications Allergies: Coded Allergies: Estrogens (CONTRAINDICATED 10/27/16) amitriptyline (From ELAVIL) (UNKNOWN 10/27/16) aspirin (From AGGRENOX) (LEG CRAMPS 10/27/16) banana (MIGRAINE HEADACHE 10/27/16) carvedilol (From COREG) (LOW BP 10/27/16) dipyridamole (From AGGRENOX) (LEG CRAMPS 10/27/16) divalproex sodium (From DEPAKOTE) (LOSING HAIR 10/27/16) ezetimibe (From VYTORIN) (MUSCLE WEAKNESS, LOW BP 10/27/16) fentanyl (UNKNOWN/CONFUSION 10/27/16) gemfibrozil (From LOPID) (MUSCLE WEAKNESS 10/27/16) hydroxychloroquine (From PLAQUENIL) (LEG CRAMPS 10/27/16) ketorolac (From TORADOL) (HEADACHE 10/27/16) methysergide (From SANSERT) (N/V 10/27/16) metoclopramide (From REGLAN) (INVOLUNTARY MOVEMENTS WITH VESSEL SCRAPPER WEAKNESS 10/14) olanzapine (From ZYPREXA) (UNKNOWN 10/27/16) onion (MIGRAINES 10/27/16) paroxetine (From PAXIL) (UNKNOWN 10/27/16) pioglitazone (From ACTOS) (UNKNOWN 10/27/16) pregabalin (From LYRICA) (LOSS OF BALANCE 10/27/16) prochlorperazine (From COMPAZINE) (NEURO 10/27/16) propoxyphene (PARANOIA 10/27/16) propranolol (LOW BP 10/27/16) ranolazine (From RANEXA) (LOW BP 10/27/16) sertraline (From ZOLOFT) (UNKNOWN 10/27/16) simvastatin (From VYTORIN) (MUSCLE WEAKNESS, LOW BP 10/27/16) temazepam (From RESTORIL) (UBJ 10/27/16) tiagabine (From GABITRIL) (UNKNOWN 10/27/16) topiramate (From TOPAMAX) (HEADACHE 10/27/16) Home Med List: Ascorbic Acid (Vitamin C) 100 MG TABLET 3 TAB PO DAILY SUPPLEMENT (Reported) Biotin 2,500 MCG CAPSULE 2 CAP PO BID SUPPLEMENT (Reported) Botulinum Toxin Type A (Botox) (Unknown Strength) VIAL (Unknown Dose) Q3M UNKNOWN (Reported) Calcium Carb/D3/Magnesium/Zinc (Fdudxeg-Qmq-Gzuc-Vit D Tablet) 333 MG-200 UNIT- 133 MG-5 MG TABLET 1 TAB PO DAILY SUPPLEMENT (Reported) Cholecalciferol (Vitamin D3) (Vitamin D) 1,000 UNIT TABLET 1 TAB PO DAILY SUPPLEMENT (Reported) Dexamethasone (Unknown Strength) ELIXIR (Unknown Dose) PO BID RINSE (Reported ) Doxylamine Succinate (Unisom) 25 MG TABLET 2 TAB PO QPM SLEEP (Reported) Ferrous Sulfate 324 MG (65 MG IRON) TABLET.DR 1 TAB PO BID SUPPLEMENT ( Reported) Folic Acid 0.8 MG TABLET 1 TAB PO DAILY SUPPLEMENT (Reported) Insulin Glargine,Hum.rec.anlog (Lantus Solostar) 100 UNIT/ML (3 ML) INSULN.PEN 30 UNIT SC BID DM (Reported) Insulin NPL/Insulin Lispro (Humalog Mix 50-50 Kwikpen) 100 UNIT/ML (50-50) INSULN.PEN 20 U SC QPM DIABETES (Reported) Insulin NPL/Insulin Lispro (Humalog Mix 50-50 Kwikpen) 100 UNIT/ML (50-50) INSULN.PEN 10 U SC 1200 DIABETES (Reported) Loratadine (Claritin) 10 MG TABLET 1 TAB PO DAILY ALLERGIES (Reported) Magnesium 250 MG TABLET 1 TAB PO DAILY SUPPLEMENT (Reported) Melatonin 10 MG TABLET 1 TAB PO QPM SLEEP (Reported) Milk Thistle Seed Extract (Milk Thistle) 200 MG CAPSULE 1 CAP PO DAILY SUPPLEMENT (Reported) Multivitamin (Multiple Vitamins) 1 EACH TABLET 1 TAB PO DAILY SUPPLEMENT ( Reported) Pantoprazole Sodium 40 MG TABLET.DR 1 TAB PO DAILY GI (Reported) Spironolactone (Aldactone) 100 MG TABLET 1 TAB PO DAILY PRN UNKNOWN (Reported ) Trazodone HCl 50 MG TABLET 1 TAB PO QPM SLEEP (Reported) Vitamin B Complex (B Complex) 1 EACH TABLET 1 TAB PO DAILY SUPPLEMENT ( Reported) ZINC 50 MG TABLET 1 TAB PO DAILY SUPPLEMENT (Reported) Current Medications: Current Medications Sig/Harry Start time Last Medication Dose Route Stop Time Status Admin Acetaminophen 650 MG ONCE ONE 01/03 0930 DC PO 01/03 0931 Acetaminophen/ 1 TAB Q4P PRN 01/03 1000 AC 01/03 Butalbital/Caffeine PO 1209 Ciprofloxacin 400 MG Q12 01/02 2205 AC 01/03 Dextrose/Water 200 ML IV 0906 Dextrose/Sodium 1,000 ML Q13H 01/03 0900 AC 01/03 Chloride IV 0906 Dextrose/Sodium 1,000 ML .[id number] 01/02 2215 DC 01/02 Chloride IV 2232 Ibuprofen 400 MG 4 TIMES/DAY PRN 01/03 1000 AC 01/03 PO 0951 Insulin Detemir 15 UNITS BID 01/02 220 AC 01/03 SC 0906 Insulin Human Regular 4 UNITS .STK-MED ONE 01/03 0553 DC IV 01/03 0554 Insulin Human Regular 4 UNITS .STK-MED ONE 01/03 0049 DC IV 01/03 0050 Insulin Human Regular 0 Q6 01/02 2359 AC 01/03 SC 1811 Metronidazole 500 MG IQ8 01/03 0000 AC 01/03 N/A 1 UNIT IV 1603 Morphine Sulfate 2 MG ONCE ONE 01/03 0115 DC / IV 01/03 0116 0114 Morphine Sulfate 0 .STK-MED ONE 01/03 2032 DC .ROUTE Ondansetron HCl 4 MG Q6P PRN 01/03 0045 AC 01/03 IV 0046 Past History Travel History Traveled to [place] past 21 day No Medical History Blood Transfusion Hx: Yes Neurological: migraine EENT: cataracts Cardiovascular: NONE Respiratory: NONE Gastrointestinal: NONE Hepatic: NonAlcholic Systemic Hep. Renal: NONE Musculoskeletal: calcaneal spur Psychiatric: insomnia Endocrine: diabetes Blood Disorders: anemia, ANTIPHOSPHOLIPID ANTIBODI Cancer(s): NONE MANAGER PLAN/Reproductive: NONE Surgical History Surgical History: non-contributory Psychosocial History Services at Home: None Smoking Status: Never Smoked Exam & Diagnostic Data Vital Signs and I&O Vital Signs Date Time Temp Pulse Resp B/P B/P Pulse O2 O2 Flow FiO2 Mean Ox Delivery Rate 01/03 1450 98.7 75 18 110/70 96 Room Air 01/03 622 98.5 92 20 100/64 96 Room Air 01/02 2117 97.8 96 20 124/60 97 Room Air 01/02 2037 98.4 90 18 135/66 97 Room Air Room Air Intake & Output 01/03 Intake Total 850 2049 0 Output Total 200 Balance 650 2049 0 Intake, IV 600 2049 Intake, Oral 250 0 0 Number 1 Bowel Movements Output, Stool 200 Patient 193 lb 192 lb Weight Weight Reported by Patient Measurement Method Results Pertinent Lab Results: Laboratory Tests 01/03 01/03 0950 0720 Chemistry Sodium (137 - 145 mmol/L) 135 L Potassium (3.5 - 5.1 mmol/L) 3.8 Chloride (98 - 107 mmol/L) 104 Carbon Dioxide (22 - 30 mmol/L) 25 Anion Gap (5 - 16) 7 BUN (7 - 17 mg/dL) 18 H Creatinine (0.5 - 1.0 mg/dL) 0.5 Estimated GFR (>60 ml/min) > 60 BUN/Creatinine Ratio (7 - 25 %) 36.0 H Total Bilirubin (0.2 - 1.3 mg/dL) 2.7 H Direct Bilirubin (< 0.4 mg/dL) 0.6 H AST (14 - 36 U/L) 31 ALT (9 - 52 U/L) 29 Alkaline Phosphatase (<127 U/L) 47 Ammonia (9 - 30 umol/L) 16 Total Protein (6.3 - 8.2 g/dL) 4.8 L Albumin (3.5 - 5.0 g/dL) 2.5 L Hematology CBC w Diff NO MAN DIFF REQ WBC (4.8 - 10.8 /CUMM) 3.9 L RBC (4.20 - 5.40 /CUMM) 3.71 L Hgb (12.0 - 16.0 G/DL) 12.4 Hct (37 - 47 %) 36.4 L MCV (81.0 - 99.0 FL) 98.2 MCH (27.0 - 31.0 PG) 33.5 H MCHC (33.0 - 37.0 G/DL) 34.2 RDW (11.5 - 14.5 %) 14.7 H Plt Count (130 - 400 /CUMM) 43 L MPV (7.4 - 10.4 FL) 7.1 L Gran % (42.2 - 75.2 %) 70.2 Lymphocytes % (20.5 - 51.1 %) 15.7 L Monocytes % (1.7 - 9.3 %) 12.8 H Eosinophils % (0 - 5 %) 0.7 Basophils % (0.0 - 2.0 %) 0.6 Absolute Granulocytes (1.4 - 6.5 /CUMM) 2.7 Absolute Lymphocytes (1.2 - 3.4 /CUMM) 0.6 L Absolute Monocytes (0.10 - 0.60 /CUMM) 0.5 Absolute Eosinophils (0.0 - 0.7 /CUMM) 0 Absolute Basophils (0.0 - 0.2 /CUMM) 0 / 1226 Chemistry Sodium (137 - 145 mmol/L) 138 Potassium (3.5 - 5.1 mmol/L) 4.1 Chloride (98 - 107 mmol/L) 105 Carbon Dioxide (22 - 30 mmol/L) 21 L Anion Gap (5 - 16) 12 BUN (7 - 17 mg/dL) 24 H Creatinine (0.5 - 1.0 mg/dL) 0.7 Estimated GFR (>60 ml/min) > 60 BUN/Creatinine Ratio (7 - 25 %) 34.3 H Glucose (65 - 99 mg/dL) 177 H Calcium (8.4 - 10.2 mg/dL) 8.5 Magnesium (1.6 - 2.3 mg/dL) 1.5 L Total Bilirubin (0.2 - 1.3 mg/dL) 4.3 H AST (14 - 36 U/L) 35 ALT (9 - 52 U/L) 33 Alkaline Phosphatase (<127 U/L) 63 Total Protein (6.3 - 8.2 g/dL) 5.8 L Albumin (3.5 - 5.0 g/dL) 3.2 L Globulin (1.9 - 4.2 gm/dL) 2.6 Albumin/Globulin Ratio (1.1 - 2.2 %) 1.2 Amylase (30 - 110 U/L) 49 Lipase (23 - 300 U/L) 71 Coagulation PT (9.4 - 12.5 SEC) 17.5 H INR (0.90 - 1.19) 1.60 H Hematology CBC w Diff NO MAN DIFF REQ WBC (4.8 - 10.8 /CUMM) 7.8 RBC (4.20 - 5.40 /CUMM) 4.35 Hgb (12.0 - 16.0 G/DL) 14.9 Hct (37 - 47 %) 42.0 MCV (81.0 - 99.0 FL) 96.4 MCH (27.0 - 31.0 PG) 34.2 H MCHC (33.0 - 37.0 G/DL) 35.5 RDW (11.5 - 14.5 %) 14.6 H Plt Count (130 - 400 /CUMM) 70 L MPV (7.4 - 10.4 FL) 7.1 L Gran % (42.2 - 75.2 %) 81.1 H Lymphocytes % (20.5 - 51.1 %) 9.9 L Monocytes % (1.7 - 9.3 %) 8.4 Eosinophils % (0 - 5 %) 0.4 Basophils % (0.0 - 2.0 %) 0.2 Absolute Granulocytes (1.4 - 6.5 /CUMM) 6.3 Absolute Lymphocytes (1.2 - 3.4 /CUMM) 0.8 L Absolute Monocytes (0.10 - 0.60 /CUMM) 0.7 H Absolute Eosinophils (0.0 - 0.7 /CUMM) 0 Absolute Basophils (0.0 - 0.2 /CUMM) 0 Imaging/Other Studies: Ultrasound: IMPRESSION: 1. There is generalized increase in hepatic echotexture, consistent with fatty infiltration or hepatocellular disease. Please correlate clinically. No focal hepatic mass or intrahepatic biliary dilatation is seen. 2. The gallbladder is surgically absent. 3. Limited ultrasound examination of the pancreatic tail. CT scan: IMPRESSION: 1. Cirrhosis, portal venous hypertension and splenomegaly. 2. Mild lymphadenopathy in the periportal region is likely reactive to the hepatic disease. 3. Pancolitis; however, no evidence of toxic megacolon. 4. Small amount of free fluid is present within the pelvis. Stool studies: Culture negative Shiga toxin negative C. difficile toxin negative Vibrio pending Assessment/Plan Assessment/Recommendations: 1. Acute bloody diarrhea. This is likely infectious in etiology. There is worsening thrombocytopenia, but this is not likely HUS/TTP. There is no clinical reason to suspect ischemia despite antiphospholipid antibody. Interestingly, she was admitted in 2013 with a longer episode of nausea, vomiting and (bloodless) diarrhea. She is followed by a pewter fabricator in [place], and apparently has had regular colonoscopies without evidence of IBD (per patient). Her nausea has resolved, pain has diminished, and her stools may be improving. She continues to pass blood per rectum. 2. 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 She follows with a pewter fabricator in [place] as well as Dr. Skelton in the liver unit at [facility]. We do not have any records. Laboratory data here demonstrates thrombocytopenia, hyperbilirubinemia , and mild coagulopathy. CT demonstrates scant ascites. Per patient, she has had no varices on annual endoscopy. Recommendations * Continue supportive care with IV fluids * Consider anticholinergic therapy such as dicyclomine or hyoscyamine * The use of antibiotics and infectious diarrhea is controversial, but hospitalization/toxicity may be enough reason to continue. Would consider the use of oral Cipro and metronidazole. * Advance diet to low fiber as tolerated * Carefully follow CBC, especially platelet count Consult Acknowledgment - Thank you for your consult request.
[2018-01-03 21:36] LABS: ABSOLUTE BASOPHIL COUNT 0 /CUMM (0.0-0.2); ABSOLUTE EOSINOPHIL COUNT 0.1 /CUMM (0.0-0.7); ABSOLUTE GRANULOCYTE CT 2.6 /CUMM (1.4-6.5); ABSOLUTE LYMPH COUNT 0.8 /CUMM (1.2-3.4); ABSOLUTE MONOCYTE COUNT 0.5 /CUMM (0.10-0.60); BASOPHIL % 0.4 % (0.0-2.0); GRANULOCYTE % 64.6 % (42.2-75.2); HEMATOCRIT 33.4 % (37-47); MEAN CORPUSCULAR HGB 33.8 PG (27.0-31.0); MEAN CORPUSCULAR VOLUME 99.5 FL (81.0-99.0); MEAN PLATELET VOLUME 8.2 FL (7.4-10.4); RBC DISTRIBUTION WIDTH 14.8 % (11.5-14.5); RED BLOOD CELL CT 3.36 /CUMM (4.20-5.40); WHITE BLOOD CELL COUNT 4.1 /CUMM (4.8-10.8)
[2018-01-03 22:55] VITALS: BP 110/60
[2018-01-03 23:05] LABS: PLATELET COUNT 46 /CUMM (130-400)
[2018-01-04 06:55] VITALS: BP 106/60
--- NOTE | 2018-01-04 08:20 | PN- Housestaff ---
Subjective Follow-up For: Colitis-ischemic/inflammatory. Subjective: Patient seen and examined at bedside. No overnight events. Patient diarrhea stopped. Denies nausea, vomiting, abdominal pain. Review of Systems Constitutional: Reports: no symptoms, see HPI. Gastrointestinal: Reports: no symptoms. Objective Last 24 Hrs of Vital Signs/I&O Vital Signs Date Time Temp Pulse Resp B/P B/P Pulse O2 O2 Flow FiO2 Mean Ox Delivery Rate 01/04 0655 97.9 76 16 106/60 96 Room Air 01/03 2255 98.4 70 16 110/60 97 Room Air 01/03 1450 98.7 75 18 110/70 96 Room Air Intake & Output 01/04 1600 01/04 0800 01/04 0000 Intake Total 900 600 Output Total Balance 900 600 Intake, IV 600 300 Intake, Oral 300 300 Physical Exam General Appearance: Alert, Oriented X3, Cooperative, No Acute Distress Cardiovascular: Regular Rate, Normal S1, Normal S2, No Murmurs Lungs: Clear to Auscultation Abdomen: Soft, No Tenderness, No Hepatospenomegaly Neurological: Normal Speech, Strength at 5/5 X4 Ext, Normal Tone, Sensation Intact Extremities: No Cyanosis, No Edema, Normal Pulses Current Medications: Current Medications Sig/Harry Start time Last Medication Dose Route Stop Time Status Admin Acetaminophen/ 1 TAB Q4P PRN 01/03 1000 AC 01/04 Butalbital/Caffeine PO 0632 Ciprofloxacin 500 MG BID 01/04 09 AC 01/04 PO 01/08 0859 0910 Ciprofloxacin 400 MG Q12 01/02 2205 DC 01/03 Dextrose/Water 200 ML IV 2216 Dextrose/Sodium 1,000 ML Q13H 01/03 09 DC 01/03 Chloride IV 2319 Dicyclomine HCl 20 MG 4 TIMES/DAY PRN 01/04 0030 AC PO Ibuprofen 400 MG 4 TIMES/DAY PRN 01/03 1000 AC 01/03 PO 0951 Insulin Aspart 0 TIDAC 01/04 08 AC SC Insulin Detemir 15 UNITS BID 01/02 2207 AC 01/04 SC 0910 Insulin Human Regular 2 UNITS .STK-MED ONE 01/03 1809 DC IV 01/03 1810 Insulin Human Regular 3 UNITS .STK-MED ONE 01/03 1206 DC IV 01/03 1207 Insulin Human Regular 0 Q6 01/02 2359 DC 01/03 SC 1811 Metronidazole 500 MG BID 01/04 09 AC 01/04 PO 0909 Metronidazole 500 MG IQ8 01/03 0000 DC 01/03 N/A 1 UNIT IV 2319 Ondansetron HCl 4 MG Q6P PRN 01/03 0045 AC 01/03 IV 0046 Last 24 Hrs of Lab/Arturo Results Last 24 Hrs of Labs/Mics: Laboratory Tests 01/04/18 1036: CBC w Diff NO MAN DIFF REQ, RBC 3.62 L, MCV 98.8, MCH 33.5 H, MCHC 33.9, RDW 14.7 H, MPV 7.1 L, Gran % 67.4, Lymphocytes % 23.0, Monocytes % 6.0, Eosinophils % 2.9, Basophils % 0.7, Absolute Granulocytes 1.9, Absolute Lymphocytes 0.6 L, Absolute Monocytes 0.2, Absolute Eosinophils 0.1, Absolute Basophils 0 01/03/182034: CBC w Diff NO MAN DIFF REQ, RBC 3.36 L, MCV 99.5 H, MCH 33.8 H, MCHC 34.0, RDW 14.8 H, MPV 8.2, Gran % 64.6, Lymphocytes % 20.7, Monocytes % 11.3 H, Eosinophils % 3.0, Basophils % 0.4, Absolute Granulocytes 2.6, Absolute Lymphocytes 0.8 L, Absolute Monocytes 0.5, Absolute Eosinophils 0.1, Absolute Basophils 0 Microbiology 01/03 1150 STOOL: Vibrio Culture - RES Assessment/Plan Assessment: 57-year-old female with past medical history of diabetes, VILLEDA,antiphospholipid antibody syndrome, remote history of DVT, migraine, hemorrhoids, came to [facility] complains of nausea, vomiting, diarrhea for the past 3 days. Assessment and plan 1. Nausea/vomiting/diarrhea-CAT scan showing pancolitis 2. Diabetes on insulin 3. Villeda 4. APLA * Colitis-ischemia/inflammatory Patient is on Cipro and Flagyl will continue the same. Patient will be seen by gastroenterology. We will stop IV fluids. Negative for C. difficile. Pending stool culture. * accu check and novolog sliding scale insulin. * Migraine headache-Motrin, Fioricet. No visual symptoms. * villeda-stable .f/u outpt * apla-f/u with her gasket inspector as outpatient. Spoke to her gasket inspector Dr. Jama over the phone who said she had chronic iron deficiency anemia and thrombocytopenia secondary due to Villeda and suggested to do an anemia workup and follow-up with him as outpatient. * code-full code * diet-low fiber diet. Problem List: 1. Pancolitis 2. Nausea and vomiting Pain Ratin Pain Location: none Pain Goal: Remain pain free Pain Plan: Ibuprofen Tomorrow's Labs & Rationales: cbc
--- NOTE | 2018-01-04 10:09 | PN- Student ---
Subjective Subjective: Patient is feeling much better today. No other episodes of N/V/D. Her abdomen is not hurting, nor is her back. Her headache has improved a lot as well. Objective Objective: Vital Signs Date Time Temp Pulse Resp B/P B/P Pulse O2 O2 Flow FiO2 Mean Ox Delivery Rate 01/04 0655 97.9 76 16 106/60 96 Room Air 01/03 2255 98.4 70 16 110/60 97 Room Air 01/03 1450 98.7 75 18 110/70 96 Room Air ED Intake and Output 01/04 0000 01/03 1200 Intake Total 850 600 Output Total 200 Balance 850 400 Intake, IV 300 600 Intake, Oral 550 0 Number 1 Bowel Movements Output, Stool 200 Physical Exam General Appearance: alert, awake, cooperative, oriented x3 Head: atraumatic Ears, Nose, Throat, Mouth: moist mucous membrane, left lower lip ulcer Neck: normal inspection, full range of motion, no midline tenderness Respiratory: no respiratory distress, lungs clear Cardiovascular: regular rate/rhythm Gastrointestinal: soft, non tender Assessment/Plan Assessment: Mrs. Burt is a 57 y/o female with a PMH of diabetes, VILLEDA, antiphospholipid antibody syndrome, remote history of DVT, migraine and hemorrhoids, that came complaining of nausea, vomiting and diarrhea. Diarrhea started on Monday. She went more than 10 times and it was non bloody. On Monday patient had 5-6 episodes of vomiting with no blood. Patient has been having bloody diarrhea since yesterday. She also said that she ate a lobster roll on Monday which makes us suspect a possible infection with Vibrio vulnificans. C. diff results came back negative. Problem list and plan: 1. Diarrhea: CT showed pancolitis. Because she said she had a lobster roll on Monday, it made us think about V. vulnificus. Risk factors for Vibrio vulnificans infection include DM and an underlying liver disease and we know that our patient has VILLEDA. For this reason, we are testing her stool for the above mentioned pathogen, which sounds like the most likely reason for her diarrhea. Because she is feeling much better today and her symptoms have cleared , we think this is the most likely ethiology as if it was ischemic colitis (due to her APS history), she wouldn't have felt that much better today. Results for V. vulnifus have not come back, so for now, cipro and dicyclomine will be continued up until we get the results back because they seem to be helping her condition. GI saw her and thinks that it is most likely an infectious ethiology so we have advanced her diet. 2. Dehydration: Hydrate with normal saline. 3. DM: administer insulin regimen. Monitor blood sugar levels. 4. VILLEDA: follow with GI as an outpatient 5. APL: follow with heme as an outpatient 6. Thrombocytopenia and anemia: monitor levels
[2018-01-04 10:58] LABS: ABSOLUTE BASOPHIL COUNT 0 /CUMM (0.0-0.2); ABSOLUTE EOSINOPHIL COUNT 0.1 /CUMM (0.0-0.7); ABSOLUTE GRANULOCYTE CT 1.9 /CUMM (1.4-6.5); ABSOLUTE LYMPH COUNT 0.6 /CUMM (1.2-3.4); ABSOLUTE MONOCYTE COUNT 0.2 /CUMM (0.10-0.60); BASOPHIL % 0.7 % (0.0-2.0); EOSINOPHIL % 2.9 % (0-5); GRANULOCYTE % 67.4 % (42.2-75.2); HEMATOCRIT 35.7 % (37-47); MEAN CORPUSCULAR HGB 33.5 PG (27.0-31.0); MEAN CORPUSCULAR HGB CONC 33.9 G/DL (33.0-37.0); MEAN CORPUSCULAR VOLUME 98.8 FL (81.0-99.0); MEAN PLATELET VOLUME 7.1 FL (7.4-10.4); RBC DISTRIBUTION WIDTH 14.7 % (11.5-14.5); RED BLOOD CELL CT 3.62 /CUMM (4.20-5.40); WHITE BLOOD CELL COUNT 2.8 /CUMM (4.8-10.8)
[2018-01-04 11:28] LABS: PLATELET COUNT 45 /CUMM (130-400)
--- NOTE | 2018-01-04 11:46 | PN- Att Addend ---
Attending Addendum Attending Brief Note Patient seen and examined, Diarrhea is better. Pt denies any abd pain. Pt afebrile. Vital Signs Date Time Temp Pulse Resp B/P B/P Pulse O2 O2 Flow FiO2 Mean Ox Delivery Rate 01/04 0655 97.9 76 16 106/60 96 Room Air 01/03 2255 98.4 70 16 110/60 97 Room Air 01/03 1450 98.7 75 18 110/70 96 Room Air on exam; aox3, nad. cv; s1,s2, rrr resp; clear abd; soft, nt, bs+ ext; no edema Laboratory Tests 01/04 01/03 1036 2035 Hematology CBC w Diff NO MAN DIFF REQ NO MAN DIFF REQ WBC (4.8 - 10.8 /CUMM) 2.8 L 4.1 L RBC (4.20 - 5.40 /CUMM) 3.62 L 3.36 L Hgb (12.0 - 16.0 G/DL) 12.1 11.4 L Hct (37 - 47 %) 35.7 L 33.4 L MCV (81.0 - 99.0 FL) 98.8 99.5 H MCH (27.0 - 31.0 PG) 33.5 H 33.8 H MCHC (33.0 - 37.0 G/DL) 33.9 34.0 RDW (11.5 - 14.5 %) 14.7 H 14.8 H Plt Count (130 - 400 /CUMM) 45 L 46 L MPV (7.4 - 10.4 FL) 7.1 L 8.2 Gran % (42.2 - 75.2 %) 67.4 64.6 Lymphocytes % (20.5 - 51.1 %) 23.0 20.7 Monocytes % (1.7 - 9.3 %) 6.0 11.3 H Eosinophils % (0 - 5 %) 2.9 3.0 Basophils % (0.0 - 2.0 %) 0.7 0.4 Absolute Granulocytes (1.4 - 6.5 /CUMM) 1.9 2.6 Absolute Lymphocytes (1.2 - 3.4 /CUMM) 0.6 L 0.8 L Absolute Monocytes (0.10 - 0.60 /CUMM) 0.2 0.5 Absolute Eosinophils (0.0 - 0.7 /CUMM) 0.1 0.1 Absolute Basophils (0.0 - 0.2 /CUMM) 0 0 A/P; 57 y/o F with pmh sig for diabetes, VILLEDA,antiphospholipid antibody syndrome , remote history of DVT, migraine, hemorrhoids, used to be on anticoagulation more than 10 years ago and also Plavix more than 5 years ago now not on any anti -regulation of blood thinning agents, admitted with nausea vomiting, bloody diarrhea and abdominal pain and found to have pancolitis on abdominal CT. Most janeth has infectious colitis with bloody diarrhea exacerbated likley 2/2 to thrombocytopenia. Stool cultures including stool C. difficile test remains negative. Review cultures also negative. Patient has been switched to oral Cipro and Flagyl. Diet will be advanced to low fiber diet. If patient tolerates diet well and continues to improve on oral antibiotics in addition discharged home tomorrow. Pt continues to have Leukopenia and thrombocytopenai from VILLEDA/ Cirrhosis. DVT px; ALPS. encourage ambulation.
[2018-01-04 14:45] VITALS: BP 108/60
--- NOTE | 2018-01-04 18:08 | PN- Gastroenterology ---
Assessment/Plan GI Assessment/Recommendations: 1. Acute bloody diarrhea. This is likely infectious in etiology. Marked improvement. 2. 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 Stable during this admission. 3. Leukopenia and thrombocytopenia. At least partially secondary to cirrhosis, with exacerbation in the setting of infection and bleeding. Recommendations * Decrease dicyclomine to 10 mg dose, and give when necessary * Complete empiric one-week course of Cipro/metronidazole. * Continue low fiber diet for several more days, then liberalize * Follow-up CBC, especially platelet count * Consider hematology consult, or at least careful follow-up with the patient's outpatient pump stitcher following discharge * From a GI standpoint, may be able to discharge tomorrow, with careful outpatient follow-up. Thank you very much for allowing gastroenterology participation in this patient' s care. I will no longer follow her in the hospital. Please call or reconsult as needed. The patient should follow-up with her outpatient parking enforcement manager (Dr. Schrader, [facility]) soon after discharge. Alternatively, I will be happy to see her in my office if so chooses. Subjective Subjective: No bowel movements today, including no blood per rectum. Pain has resolved. No nausea or vomiting. Tolerating solid diet. Objective Vital Signs and I&Os Vital Signs Date Time Temp Pulse Resp B/P B/P Pulse O2 O2 Flow FiO2 Mean Ox Delivery Rate 01/04 1445 98.7 79 16 108/60 98 01/04 0655 97.9 76 16 106/60 96 Room Air 01/03 2255 98.4 70 16 110/60 97 Room Air Intake & Output 01/04 1600 01/04 0400 01/03 1600 01/03 0400 01/02 1600 01/02 0400 Intake Total 1650 862 974 6131 0 Output Total 200 Balance 1650 973 238 0835 0 Intake, IV 600 543 432 3368 Intake, Oral 1050 300 250 0 0 Number 1 Bowel Movements Output, Stool 200 Patient 193 lb 192 lb Weight Weight Reported by Patient Measurement Method Physical Exam: Sclera anicteric. Abdomen soft, nondistended, nontender. Current Medications: Current Medications Sig/Harry Start time Last Medication Dose Route Stop Time Status Admin Acetaminophen/ 1 TAB Q4P PRN 01/03 1000 AC 01/04 Butalbital/Caffeine PO 1434 Ciprofloxacin 500 MG BID 01/04 0900 AC 05/10 PO 01/08 0859 0910 Ciprofloxacin 400 MG Q12 01/02 2205 DC 01/03 Dextrose/Water 200 ML IV 2216 Dextrose/Sodium 1,000 ML Q13H 01/03 09 DC 01/03 Chloride IV 2319 Dicyclomine HCl 20 MG 4 TIMES/DAY PRN 01/04 0030 AC PO Ibuprofen 400 MG 4 TIMES/DAY PRN 01/03 1000 AC 01/03 PO 0951 Insulin Aspart 0 TIDAC 01/04 08 AC 01/04 SC 1223 Insulin Detemir 15 UNITS BID 01/02 220 AC 01/04 SC 0910 Insulin Human Regular 2 UNITS .STK-MED ONE 01/03 1809 DC IV 01/03 1810 Insulin Human Regular 0 Q6 01/02 2359 DC 01/03 SC 1811 Metronidazole 500 MG BID 01/04 900 AC 01/04 PO 0909 Metronidazole 500 MG IQ8 01/03 0000 DC 01/03 N/A 1 UNIT IV 2319 Ondansetron HCl 4 MG Q6P PRN 01/03 0045 AC 01/03 IV 0046 Patient Medication 1 ED ONE ONE 01/04 1645 [facility] ED 01/04 1646 Results Pertinent Lab Results: Laboratory Tests 01/04 01/03 1036 2035 Hematology CBC w Diff NO MAN DIFF REQ NO MAN DIFF REQ WBC (4.8 - 10.8 /CUMM) 2.8 L 4.1 L RBC (4.20 - 5.40 /CUMM) 3.62 L 3.36 L Hgb (12.0 - 16.0 G/DL) 12.1 11.4 L Hct (37 - 47 %) 35.7 L 33.4 L MCV (81.0 - 99.0 FL) 98.8 99.5 H MCH (27.0 - 31.0 PG) 33.5 H 33.8 H MCHC (33.0 - 37.0 G/DL) 33.9 34.0 RDW (11.5 - 14.5 %) 14.7 H 14.8 H Plt Count (130 - 400 /CUMM) 45 L 46 L MPV (7.4 - 10.4 FL) 7.1 L 8.2 Gran % (42.2 - 75.2 %) 67.4 64.6 Lymphocytes % (20.5 - 51.1 %) 23.0 20.7 Monocytes % (1.7 - 9.3 %) 6.0 11.3 H Eosinophils % (0 - 5 %) 2.9 3.0 Basophils % (0.0 - 2.0 %) 0.7 0.4 Absolute Granulocytes (1.4 - 6.5 /CUMM) 1.9 2.6 Absolute Lymphocytes (1.2 - 3.4 /CUMM) 0.6 L 0.8 L Absolute Monocytes (0.10 - 0.60 /CUMM) 0.2 0.5 Absolute Eosinophils (0.0 - 0.7 /CUMM) 0.1 0.1 Absolute Basophils (0.0 - 0.2 /CUMM) 0 0 01/03 01/03 01/03 0950 0720 0600 Chemistry Sodium (137 - 145 mmol/L) 135 L Potassium (3.5 - 5.1 mmol/L) 3.8 Chloride (98 - 107 mmol/L) 104 Carbon Dioxide (22 - 30 mmol/L) 25 Anion Gap (5 - 16) 7 BUN (7 - 17 mg/dL) 18 H Creatinine (0.5 - 1.0 mg/dL) 0.5 Estimated GFR (>60 ml/min) > 60 BUN/Creatinine Ratio (7 - 25 %) 36.0 H Iron (37 - 170 ug/dL) 65 TIBC (265 - 497 ug/dL) 283 % Saturation (16 - 45 %) 22 Ferritin (11.1 - 264 ng/mL) 211.0 Total Bilirubin (0.2 - 1.3 mg/dL) 2.7 H Direct Bilirubin (< 0.4 mg/dL) 0.6 H AST (14 - 36 U/L) 31 ALT (9 - 52 U/L) 29 Alkaline Phosphatase (<127 U/L) 47 Ammonia (9 - 30 umol/L) 16 Lactate Dehydrogenase (313 - 618 U/L) 495 Total Protein (6.3 - 8.2 g/dL) 4.8 L Albumin (3.5 - 5.0 g/dL) 2.5 L Hematology CBC w Diff NO MAN DIFF REQ WBC (4.8 - 10.8 /CUMM) 3.9 L RBC (4.20 - 5.40 /CUMM) 3.71 L Hgb (12.0 - 16.0 G/DL) 12.4 Hct (37 - 47 %) 36.4 L MCV (81.0 - 99.0 FL) 98.2 MCH (27.0 - 31.0 PG) 33.5 H MCHC (33.0 - 37.0 G/DL) 34.2 RDW (11.5 - 14.5 %) 14.7 H Plt Count (130 - 400 /CUMM) 43 L MPV (7.4 - 10.4 FL) 7.1 L Gran % (42.2 - 75.2 %) 70.2 Lymphocytes % (20.5 - 51.1 %) 15.7 L Monocytes % (1.7 - 9.3 %) 12.8 H Eosinophils % (0 - 5 %) 0.7 Basophils % (0.0 - 2.0 %) 0.6 Absolute Granulocytes (1.4 - 6.5 /CUMM) 2.7 Absolute Lymphocytes (1.2 - 3.4 /CUMM) 0.6 L Absolute Monocytes (0.10 - 0.60 /CUMM) 0.5 Absolute Eosinophils (0.0 - 0.7 /CUMM) 0 Absolute Basophils (0.0 - 0.2 /CUMM) 0 Haptoglobin Pending 01/02 1226 Chemistry Sodium (137 - 145 mmol/L) 138 Potassium (3.5 - 5.1 mmol/L) 4.1 Chloride (98 - 107 mmol/L) 105 Carbon Dioxide (22 - 30 mmol/L) 21 L Anion Gap (5 - 16) 12 BUN (7 - 17 mg/dL) 24 H Creatinine (0.5 - 1.0 mg/dL) 0.7 Estimated GFR (>60 ml/min) > 60 BUN/Creatinine Ratio (7 - 25 %) 34.3 H Glucose (65 - 99 mg/dL) 177 H Calcium (8.4 - 10.2 mg/dL) 8.5 Magnesium (1.6 - 2.3 mg/dL) 1.5 L Total Bilirubin (0.2 - 1.3 mg/dL) 4.3 H AST (14 - 36 U/L) 35 ALT (9 - 52 U/L) 33 Alkaline Phosphatase (<127 U/L) 63 Total Protein (6.3 - 8.2 g/dL) 5.8 L Albumin (3.5 - 5.0 g/dL) 3.2 L Globulin (1.9 - 4.2 gm/dL) 2.6 Albumin/Globulin Ratio (1.1 - 2.2 %) 1.2 Amylase (30 - 110 U/L) 49 Lipase (23 - 300 U/L) 71 Coagulation PT (9.4 - 12.5 SEC) 17.5 H INR (0.90 - 1.19) 1.60 H Hematology CBC w Diff NO MAN DIFF REQ WBC (4.8 - 10.8 /CUMM) 7.8 RBC (4.20 - 5.40 /CUMM) 4.35 Hgb (12.0 - 16.0 G/DL) 14.9 Hct (37 - 47 %) 42.0 MCV (81.0 - 99.0 FL) 96.4 MCH (27.0 - 31.0 PG) 34.2 H MCHC (33.0 - 37.0 G/DL) 35.5 RDW (11.5 - 14.5 %) 14.6 H Plt Count (130 - 400 /CUMM) 70 L MPV (7.4 - 10.4 FL) 7.1 L Gran % (42.2 - 75.2 %) 81.1 H Lymphocytes % (20.5 - 51.1 %) 9.9 L Monocytes % (1.7 - 9.3 %) 8.4 Eosinophils % (0 - 5 %) 0.4 Basophils % (0.0 - 2.0 %) 0.2 Absolute Granulocytes (1.4 - 6.5 /CUMM) 6.3 Absolute Lymphocytes (1.2 - 3.4 /CUMM) 0.8 L Absolute Monocytes (0.10 - 0.60 /CUMM) 0.7 H Absolute Eosinophils (0.0 - 0.7 /CUMM) 0 Absolute Basophils (0.0 - 0.2 /CUMM) 0
[2018-01-04 23:01] LABS: ABSOLUTE BASOPHIL COUNT 0 /CUMM (0.0-0.2); ABSOLUTE EOSINOPHIL COUNT 0.1 /CUMM (0.0-0.7); ABSOLUTE LYMPH COUNT 0.7 /CUMM (1.2-3.4); ABSOLUTE MONOCYTE COUNT 0.2 /CUMM (0.10-0.60); BASOPHIL % 0.7 % (0.0-2.0); HEMATOCRIT 34.3 % (37-47); MEAN CORPUSCULAR HGB 33.2 PG (27.0-31.0); MEAN CORPUSCULAR VOLUME 97.6 FL (81.0-99.0); PLATELET COUNT 55 /CUMM (130-400); RBC DISTRIBUTION WIDTH 14.5 % (11.5-14.5); RED BLOOD CELL CT 3.52 /CUMM (4.20-5.40); WHITE BLOOD CELL COUNT 3.1 /CUMM (4.8-10.8)
[2018-01-04 23:28] VITALS: BP 110/60
--- NOTE | 2018-01-04 23:59 | Event Note ---
Event Note Event Note: I was told that patient has black colored stool, FOBT positive. Given her pancolitis H&H was repeated, relatively stable. Hemodynamically stable. We will continue to monitor.
[2018-01-05 06:20] VITALS: BP 126/64
--- NOTE | 2018-01-05 08:41 | PN- Housestaff ---
Subjective Follow-up For: Colitis-infectious Complaints: no complaints Subjective: Patient seen and examined at bedside no overnight events. No complaints. Patient feels that her diarrhea and abdominal pain have stopped. Review of Systems Constitutional: Reports: no symptoms, see HPI. Objective Last 24 Hrs of Vital Signs/I&O Vital Signs Date Time Temp Pulse Resp B/P B/P Pulse O2 O2 Flow FiO2 Mean Ox Delivery Rate 01/06 620 98.6 85 18 126/64 96 Room Air 01/04 2328 98.1 79 18 110/60 96 Room Air 01/04 1445 98.7 79 16 108/60 98 Intake & Output 01/05 1600 01/05 0800 01/05 0000 Intake Total 200 120 Output Total Balance 200 120 Intake, Oral 200 120 Number 4 Bowel Movements Patient 192 lb Weight Physical Exam General Appearance: Alert, Oriented X3, Cooperative, No Acute Distress Cardiovascular: Regular Rate, Normal S1, Normal S2, No Murmurs Lungs: Clear to Auscultation, Normal Air Movement Abdomen: Soft, No Tenderness, No Hepatospenomegaly Neurological: Normal Speech, Strength at 5/5 X4 Ext, Normal Tone, Sensation Intact Current Medications: Current Medications Sig/Harry Start time Last Medication Dose Route Stop Time Status Admin Acetaminophen/ 1 TAB .STK-MED ONE 01/05 0243 DC Butalbital/Caffeine PO 01/05 0244 Acetaminophen/ 1 TAB .STK-MED ONE 01/04 1837 DC Butalbital/Caffeine PO 01/04 1838 Acetaminophen/ 1 TAB Q4P PRN 01/03 1000 AC 01/05 Butalbital/Caffeine PO 1136 Ciprofloxacin 500 MG BID 01/04 900 01/05 PO 01/08 0859 0911 Dicyclomine HCl 20 MG 4 TIMES/DAY PRN 01/04 0030 AC PO Ibuprofen 400 MG 4 TIMES/DAY PRN 01/03 1000 DC 01/03 PO 0951 Insulin Aspart 0 TIDAC 01/04 08 01/04 SC 1223 Insulin Detemir 15 UNITS BID 01/02 2207 AC 01/05 SC 0911 Metronidazole 500 MG BID 01/04 09 AC 01/05 PO 0911 Ondansetron HCl 4 MG Q6P PRN 01/03 0045 AC 01/03 IV 0046 Patient Medication 1 ED ONE ONE 01/05 0945 GA 01/05 Teaching ED 01/05 0946 0945 Patient Medication 1 ED ONE ONE 01/[address] [facility] ED 01/04 1646 Last 24 Hrs of Lab/Arturo Results Last 24 Hrs of Labs/Mics: Laboratory Tests 01/05/18 0720: CBC w Diff NO MAN DIFF REQ, RBC 3.89 L, MCV 99.0, MCH 33.4 H, MCHC 33.8, RDW 14.5, MPV 7.0 L, Gran % 64.5, Lymphocytes % 25.5, Monocytes % 6.0, Eosinophils % 3.2, Basophils % 0.8, Absolute Granulocytes 2.6, Absolute Lymphocytes 1.0 L, Absolute Monocytes 0.2, Absolute Eosinophils 0.1, Absolute Basophils 0 01/04/18 2205: CBC w Diff NO MAN DIFF REQ, RBC 3.52 L, MCV 97.6, MCH 33.2 H, MCHC 34.0, RDW 14.5, MPV 7.0 L, Gran % 65.0, Lymphocytes % 23.3, Monocytes % 8.0, Eosinophils % 3.0, Basophils % 0.7, Absolute Granulocytes 2.0, Absolute Lymphocytes 0.7 L, Absolute Monocytes 0.2, Absolute Eosinophils 0.1, Absolute Basophils 0 Assessment/Plan Assessment: 57-year-old female with past medical history of diabetes, VILLEDA,antiphospholipid antibody syndrome, remote history of DVT, migraine, hemorrhoids, came to [facility] complains of nausea, vomiting, diarrhea for the past 3 days. Assessment and plan 1. Nausea/vomiting/diarrhea-CAT scan showing pancolitis 2. Diabetes on insulin 3. Villeda 4. APLA * Colitis-infectious. Patient is on Cipro and Flagyl and improving with antibiotics. We will send her home with total 7 days of by mouth antibiotics. Negative for C. difficile. Stool for vibrio negative. * accu check t and novolog sliding scale insulin. * Migraine headache-Motrin, Fioricet. No visual symptoms. * villeda-stable .f/u outpt * apla-f/u with her outboard motorboat operator as outpatient. Spoke to her outboard motorboat operator Dr. Jama over the phone who said she had chronic iron deficiency anemia and thrombocytopenia secondary due to Villeda and suggested to do an anemia workup and follow-up with him as outpatient. * code-full code * diet-low fiber diet. Plan-for discharge to home. Problem List: 1. Pancolitis Pain Ratin Pain Location: none Pain Goal: Remain pain free Pain Plan: Tylenol Tomorrow's Labs & Rationales: none
[2018-01-05 08:49] LABS: ABSOLUTE BASOPHIL COUNT 0 /CUMM (0.0-0.2); ABSOLUTE EOSINOPHIL COUNT 0.1 /CUMM (0.0-0.7); ABSOLUTE GRANULOCYTE CT 2.6 /CUMM (1.4-6.5); ABSOLUTE MONOCYTE COUNT 0.2 /CUMM (0.10-0.60); BASOPHIL % 0.8 % (0.0-2.0); EOSINOPHIL % 3.2 % (0-5); GRANULOCYTE % 64.5 % (42.2-75.2); HEMATOCRIT 38.5 % (37-47); MEAN CORPUSCULAR HGB 33.4 PG (27.0-31.0); MEAN CORPUSCULAR HGB CONC 33.8 G/DL (33.0-37.0); PLATELET COUNT 62 /CUMM (130-400); RBC DISTRIBUTION WIDTH 14.5 % (11.5-14.5); RED BLOOD CELL CT 3.89 /CUMM (4.20-5.40)
--- NOTE | 2018-01-05 09:08 | Patient Discharge Instructions ---
Discharge Instructions General Discharge Information You were seen/treated for: Colitis Watch for these problems: In case of nausea, vomiting, diarrhea please go to the nearest emergency room Special Instructions: Please follow-up with your primary care physician/tufting machine fixer at [place]/ chicken dresser at [place] within 1-2 weeks of discharge. Diet Continue normal diet: No Recommended Diet: low fiber diet Activity Full Activity/No Limits: No Activity Self Limited: Yes Acute Coronary Syndrome Inclusion Criteria At DC or during hospital stay patient has or had the following: ACS DIAGNOSIS No Discharge Core Measures Meds if any: Prescribed or Continued at Discharge Meds if any: NOT Prescribed or Continued at Discharge Congestive Heart Failure Inclusion Criteria At DC or during hospital stay patient has or had the following: CHF DIAGNOSIS No Discharge Core Measures Meds if any: Prescribed or Continued at Discharge Meds if any: NOT Prescribed or Continued at Discharge Cerebrovascular accident Inclusion Criteria At DC or during hospital stay patient has or had the following: CVA/TIA Diagnosis No Discharge Core Measures Meds if any: Prescribed or Continued at Discharge Meds if any: NOT Prescribed or Continued at Discharge Venous thromboembolism Inclusion Criteria VTE Diagnosis No VTE Type NONE VTE Confirmed by (Test) NONE Discharge Core Measures - Per Current guidelines, there needs to be overlap - treatment for the first 5 days of Warfarin therapy. - If discharged on Warfarin prior to 5 days of - overlap therapy, the patient will need to be - assessed for post discharge needs including - *Post discharge parental anticoagulation - *Warfarin and/or parental anticoagulation education - *Follow up date to check INR post discharge At least 5 days overlap therapy as Inpatient No Meds if any: Prescribed or Continued at Discharge Note: Overlap Therapy is Warfarin and Anticoagulant Meds if any: NOT Prescribed or Continued at Discharge
[2018-01-05] MEDS ORDERED: CIPRO500 M1 PO ×3 (09:14→13:50)
[2018-01-05] MEDS ORDERED: FLAGYL250 M1 PO ×3 (09:14→13:50)
[2018-01-05] MEDS ORDERED: Bentyl PO ×4 (09:14→13:51)
--- NOTE | 2018-01-05 11:40 | PN- Att Addend ---
Attending Addendum Attending Brief Note Patient seen and examined, overall doing much better. No abdominal pain. Diet improved. Last night she had wet positive stool but her H&H remained stable. Otherwise she is afebrile. Her blood counts are also improving. H&H is stable and platelets are improving. Patient is otherwise medically stable for discharge home today on oral antibiotics. Total of seven-day course. Patient should follow-up with GI, primary care doctor as well as her hand salter as an outpatient.
[2018-01-05 14:18] VITALS: BP 110/68
== END 2018-01-05 14:20 | DRG 392 ==
LOC: ERH 12:14 → ERHI 16:29 → 2NA 16:29 → ENRESERV 20:05 → ENTRNSPT 20:36 → EDTRNSPT 20:39 → EDTRNSPTSTS 20:39 → 2NA 20:45 → CMPTRNSPT 20:54 → 2NA 01-03 08:18
PROVIDERS: Emergency Medicine; Internal Medicine; Internal Medicine Adolescent Medicine; Student in an Organized Health Care Education/Training Program
DX: A09 Infectious gastroenteritis and colitis, unspecified (principal); D68.61 Antiphospholipid syndrome; D69.6 Thrombocytopenia, unspecified; E11.8 Type 2 diabetes mellitus with unspecified complications; E86.0 Dehydration; K92.1 Melena; K75.81 Nonalcoholic steatohepatitis (NASH); Z79.4 Long term (current) use of insulin; D72.819 Decreased white blood cell count, unspecified; Z88.6 Allergy status to analgesic agent; Z88.5 Allergy status to narcotic agent; Z88.8 Allergy status to other drugs, medicaments and biological substances; G47.00 Insomnia, unspecified; H26.9 Unspecified cataract; K64.9 Unspecified hemorrhoids
CPT/HCPCS: 2NAP; 36415; 36592; 74177; 82436; 83010; 87045; 96361; 96374; 96375; J0744; J1815; J2405; J7042; J7060